=== PATIENT | female | born 1940 | race Caucasian/White ===

== ENCOUNTER → 2018-03-29 11:00 | Outpatient (CLI) | payer MEDICARE, BC, SELFPAY ==
[2018-03-29 12:02] LABS: CREATININE 0.84 mg/dL (0.55-1.02); Potassium 4.9 mmol/L (3.5-5.1)
== END ==
PROVIDERS: PCP General Practice; Visit Provider General Practice
DX: I10 Essential (primary) hypertension (principal)
CPT/HCPCS: 36415; 82565; 84132

== ENCOUNTER 2018-05-07 12:55 | Outpatient (REF) | payer MEDICARE, SELFPAY ==
--- NOTE | 2018-05-07 11:00 | SKI_PTH ---
PATIENT: Gauri Felix LOC: [facility] U#:[id number] AGE/SX: 78/F ROOM: RE05/07/[address]: Paolo Noel : 1940 BED: DIS: 05/07/2018 SPEC #: [id number] RECD: 05/07/18 13:02 STATUS: FRANCIE PEREZ #: [id number] LAILA: 05/07/18 11:[address]: Paolo Noel DEPT: Surgical Specimen RECD BY: Shaylee Armijo Tissues: 1 - SKIN BIOPSY(SHAVE/PUNCH) Procedures: SKIN LEVEL 4 Comments: [id number]
== END 2018-05-07 13:15 ==
LOC: LBN 12:55
PROVIDERS: PCP General Practice; Visit Provider General Practice
DX: L82.1 Other seborrheic keratosis (principal); D23.30 Other benign neoplasm of skin of unspecified part of face
CPT/HCPCS: 88305

== ENCOUNTER 2018-10-29 01:41 | Outpatient (CLI) | payer MEDICARE, BC, SELFPAY ==
--- NOTE | 2018-10-29 12:30 | DI.MAMMO_ITS ---
SYMPTOMS/DIAGNOSIS: SCREENING, Z12.31 MAMMOGRAM: Mammograms were interpreted according to the usual protocol including computer analysis with CAD system, tomosynthesis and C view imaging. Comparison with prior examinations. Breast density B. No suspicious microcalcifications are seen. No suspicious masses are seen in the left breast. There is an ovoid asymmetric density in the medial aspect of the right breast seen on the craniocaudad view. This area should be further evaluated with a spot compression view. Ultrasound may be indicated at that time. IMPRESSION: Additional views of the right breast as described above. Category 0. MQSA ASSESSMENT OF FINDINGS: Incomplete: Needs additional imaging evaluation. Category 0. Patient will receive a letter notifying them of these results. BI-RADS category B. There are scattered areas of fibroglandular density.
== END 2018-10-29 02:01 ==
PROVIDERS: PCP General Practice; Visit Provider Nurse Practitioner Family
DX: Z12.31 Encounter for screening mammogram for malignant neoplasm of breast (principal); R92.8 Other abnormal and inconclusive findings on diagnostic imaging of breast
CPT/HCPCS: 77063; 77067

== ENCOUNTER 2018-11-06 01:26 | Outpatient (CLI) | payer MEDICARE, BC, SELFPAY ==
--- NOTE | 2018-11-06 10:48 | DI.COMBO_ITS ---
SYMPTOMS/DIAGNOSIS: F/U MAMMO, OVOID ASYMMETRIC DENSITY IN MEDIAL ASPECT OF RT BREAST, R92.8 ADDITIONAL VIEWS OF THE RIGHT BREAST AND RIGHT BREAST ULTRASOUND: Additional images are interpreted according to the usual protocol including tomosynthesis and 2D imaging. Additional views of the right breast fail to show a persistent discrete mass. A right breast ultrasound was performed. The upper inner and lower inner quadrants of the right breast were evaluated sonographically. No suspicious cystic or solid masses are seen. IMPRESSION: No definite evidence for malignancy at this time. A 6 month follow up right mammogram is requested for re-evaluation. Breast density B. The findings were discussed with the patient on the date of the examination. MQSA ASSESSMENT OF FINDINGS: Probably benign. Six month follow-up recommended. Category 3. Patient will receive a letter notifying them of these results. BI-RADS category B. There are scattered areas of fibroglandular density.
== END 2018-11-06 01:46 ==
PROVIDERS: PCP General Practice; Visit Provider Nurse Practitioner Family
DX: Z12.31 Encounter for screening mammogram for malignant neoplasm of breast (principal); R92.8 Other abnormal and inconclusive findings on diagnostic imaging of breast; N64.59 Other signs and symptoms in breast
CPT/HCPCS: 76642; 77063; 77067

== ENCOUNTER 2018-12-17 00:38 | Outpatient (CLI) | payer MEDICARE, BC, SELFPAY ==
--- NOTE | 2018-12-17 14:00 | DI.RAD_ITS ---
SYMPTOMS/DIAGNOSIS: SCREENING FOR OSTEOPOROSIS IN A POSTMENOPAUSAL WOMAN, Z78.0; KYPHOSIS DEXA SCAN: Routine examination. Comparison is 2008. The lateral view of the spine shows no compression deformities. Evaluation of the left hip shows a total T score of -1.2 and a Z score of 0.7; this is consistent with osteopenia and an increased fracture risk. This compares with a total T score of -0.2 from 2008. Evaluation of the lumbar spine shows a total T score of -2.2 and a Z score of 0.3; this is also consistent with osteopenia and an increased fracture risk. This compares with a total T score of -1.9 from 2008. IMPRESSION: Osteopenia in the lumbar spine and left hip.
== END 2018-12-17 00:58 ==
PROVIDERS: PCP General Practice; Visit Provider General Practice
DX: M85.88 Other specified disorders of bone density and structure, other site (principal); Z78.0 Asymptomatic menopausal state
CPT/HCPCS: 77080

== ENCOUNTER 2018-12-17 13:58 | Outpatient (CLI) | payer MEDICARE, BC, SELFPAY ==
[2018-12-17 16:47] LABS: Potassium 4.4 mmol/L (3.5-5.1); TSH 2.41 uIU/mL (0.358-3.74)
== END 2018-12-17 14:18 ==
PROVIDERS: PCP General Practice; Visit Provider General Practice
DX: I10 Essential (primary) hypertension (principal); E03.9 Hypothyroidism, unspecified
CPT/HCPCS: 36415; 77080; 82565; 84132; 84443

== ENCOUNTER 2018-12-20 08:34 | Outpatient (REF) | payer MEDICARE, BC, SELFPAY ==
[2018-12-21 11:50] LABS: Campylobacter PCR SEE COMMENTS; Salmonella PCR SEE COMMENTS; Shiga Toxin PCR SEE COMMENTS; Shigella/Enteroinvasive Ecoli SEE COMMENTS
== END 2018-12-20 08:54 ==
LOC: LBN 08:34
PROVIDERS: PCP General Practice; Visit Provider General Practice
DX: D68.9 Coagulation defect, unspecified (principal)
CPT/HCPCS: 87329; 87505; 83630; 87324

== ENCOUNTER 2019-05-13 00:24 | Outpatient (CLI) | payer MEDICARE, BC, SELFPAY ==
--- NOTE | 2019-05-13 13:20 | DI.MAMMO_ITS ---
EXAM: MG MAMMO DIAGNOSTIC UNI CLINICAL HISTORY: 6 mo f/u R mammo, R92.8. TECHNIQUE: Mammograms were interpreted according to the usual protocol including computer analysis w [employer] CAD system, tomosynthesis and C-view imaging. COMPARISON: No exams were available for comparison FINDINGS: Six-month follow-up images of the right breast were obtained. There has been no appreciable interval change. There is no evidence of a mass or suspicious calcification. IMPRESSION: No evidence of malignancy, category 1. BI-RADS category B. BI-RADS Cat 1 - Negative Breast Density - Category B - Scattered areas of fibroglandular density
== END 2019-05-13 00:44 ==
PROVIDERS: PCP General Practice; Visit Provider Nurse Practitioner Family
DX: Z12.31 Encounter for screening mammogram for malignant neoplasm of breast (principal); R92.8 Other abnormal and inconclusive findings on diagnostic imaging of breast; N64.59 Other signs and symptoms in breast
CPT/HCPCS: 77061; 77065; G0279

== ENCOUNTER 2019-06-28 13:13 | Emergency (ER) | payer MEDICARE, BC, SELFPAY ==
[2019-06-28 13:15] VITALS: BP 163/86; PULSE 64; RESP 18; TEMP 34.4; O2SAT 100
[2019-06-28 13:20] VITALS: RESP 18
[2019-06-28] MEDS: Meclizine 25 MG TAB PO (13:56)
--- NOTE | 2019-06-28 13:57 | ED.GENADUL_ITS ---
Discharge Plan Disposition Patient Disposition: HOME Discharge Details Chief Complaint: Dizzy/Sync Clinical Impression: Vertigo Primary Care Provider: Elena Stauffer ED Provider: Imtiaz Nieves Home Meds and New Rx's Prescriptions: New meclizine 25 mg tablet 25 mg PO BID PRN (Reason: dizziness) Qty: 30 RF: 0 Continued losartan 25 mg tablet 25 mg PO DAILY RF: 0 atorvastatin 10 MG tablet 20 mg PO DAILY RF: 0 levothyroxine 25 MCG tablet 50 mcg PO DAILY RF: 0 aspirin [Aspir-81] 81 mg tablet,delayed release (DR/EC) 325 mg PO DAILY RF: 0 meclizine [Antivert] 12.5 MG tablet 12.5 mg PO TID PRN (Reason: Vertigo) Qty: 12 RF: 0 Discharge Instructions Instructions: Vertigo (ED) Additional Instructions: Please follow-up with your primary care physician and neurology. Return to the ER immediately for any worsening or new concerning symptoms. Referrals: Elena Stauffer NP [Primary Care Provider] - Jordyn Hurd MD [ [facility] STAFF PHYSICIAN] - Medical Decision Making 14:00 --79-year-old female with history of vertigo in the past, here with vertigo. Hints testing was negative. Suspect peripheral etiology. Consider central lesion given her age and risk factors including prior CVA. Plan to treat with Antivert. Will CT head and CTA brain and neck. 16:29 --CTA of the head and neck interpreted by radiology: No acute findings. CT head interpreted cardiology: No acute intracranial abnormality. Chronic microvascular ischemic changes. Patient reassessed and feels much better and symptoms resolved after Antivert. Discussed outpatient follow-up with neurology. Disposition decision was made weighing the risks and benefits of hospitalization versus outpatient treatment, the risk for further decompensation, and the patient's wishes. The patient was stable and requested discharge. Prior to discharge, my usual and customary return precautions were reviewed with the patient - this included follow-up instructions and reason to return to the emergency department if condition worsens, does not improve as expected, or other new concerns arise. HPI General Mode of arrival: ambulatory . Date/Time Provider Initiated Documentation: 06/28/19 13:28 . Limitations to Documentation: no limitations . Information obtained by: patient . 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 Patient notes room spinning dizziness that started about 45 minutes prior to arrival. Symptoms are severe. Worse with movement of her head. Improved with lying down now. She had associated nausea and vomiting. Of note, about 1 year ago, she had similar vertiginous presentation to the emergency department. She notes she had negative CT at that time. Since that time she had a few brief episodes of vertigo. Patient denies associated chest pain. No swelling. No numbness or weakness. Related Data Home Medications Medication Instructions Recorded Confirmed atorvastatin 20 mg PO DAILY tab-cap 08/17/14 06/28/19 levothyroxine 50 mcg PO DAILY tab-cap 09/08/16 06/28/19 meclizine [Antivert] 12.5 mg PO TID PRN #12 tab 01/10/18 06/28/19 aspirin 81 mg tablet,delayed 325 mg PO DAILY tab-cap 10/17/18 06/28/19 release losartan 25 mg tablet 25 mg PO DAILY 10/17/18 06/28/19 meclizine 25 mg PO BID PRN #30 tab 06/28/19 Previous Rx's Medication Instructions Recorded meclizine [Antivert] 12.5 mg PO TID PRN #12 tab 01/10/18 meclizine 25 mg PO BID PRN #30 tab 06/28/19 Allergies Allergy/AdvReac Type Severity Reaction Status Date / Time alfalfa Allergy Severe Hives Verified 06/28/19 13:26 Sulfa (Sulfonamide Allergy Severe sick and Verified 06/28/19 13:26 Antibiotics) itchy nitrofurantoin AdvReac Severe nausea,dizzy,and Verified 06/28/19 13:26 [From Macrobid] in bed for 2 days nitrofurantoin AdvReac Severe nausea,dizzy,and Verified 06/28/19 13:26 macrocrystalline in bed for [From Macrobid] 2 days meperidine HCl [From Demerol] AdvReac Intermediate vomiting Verified 06/28/19 13:26 Latex, Natural Rubber AdvReac Mild Itching Unverified 06/28/19 13:26 General Stated Complaint: Dizzy/Sync ELA: 3 Review of Systems All systems reviewed & are unremarkable except as noted in HPI and below Constitutional Constitutional: Denies fever(s) and Denies weakness ENT Ears, Nose, Mouth, and Throat: Reports vertigo Cardiovascular Cardiovascular: Denies chest pain, Denies syncope and Denies dyspnea Respiratory Respiratory: Denies dyspnea Neurologic Neurologic: Reports vertigo, Denies syncope and Denies weakness PFSH Medical History 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 Sister No problems noted. Brother No problems noted. Son Alcohol abuse Past Asthma Hyperlipidemia Hypertension Autism Maternal Grandfather , age 85 No problems noted. Paternal Grandfather , age 87 Prostate cancer Maternal Grandmother , age 85 No problems noted. Paternal Grandmother , age 85 Cancer Social History Smoking/Tobacco Use Status: Never Alcohol Intake: current Alcohol Intake frequency: holidays/special occasions only Alcohol type: wine and hard liquor Drug use: Never Substance use type: does not use Household members: spouse Housing: house Communication Needs: Corrective Lenses Do you need help understanding health information?: Never Pets and animals: Yes Pets and animals: cat(s) Sexually active: No Do you think of yourself as: straight/heterosexual Current gender identity: female What is your relationship status?: How often do you talk on the phone with friends or family?: three or more times per week How often do you get together with friends or relatives?: three or more times per week How often do you attend methodist or jainism services?: decline to answer Do you belong to any clubs or organized social groups?: yes Panel score (0-1 are the most socially isolated patients): 3 What type of physical activity do you participate in: other Details: housework, yard work, gardening, pet care, stairs Frequency: daily Irina/Christianity: none Special irina needs: Yes (If I'm dying keep clergy & harps away) Seatbelt use: always Drive intox or ride w/intox national dedicated truck driver: No Do you feel safe at home: Yes Do you feel safe in your relationship?: Yes Exam Const General: cooperative and no acute distress HENMT Head: normocephalic and atraumatic Mouth: moist mucous membranes Eyes Conjunctivae: normal conjunctivae Sclera: normal sclerae EOM: EOM intact bilaterally Neck Neck: trachea midline and supple Resp Auscultation: clear to auscultation bilaterally, no rales, no rhonchi and no wheezes Cardio Jugular venous pressure: no JVD Rate: regular rate and not tachycardic Rhythm: regular rhythm GI Palpation: soft, not firm, no guarding, no masses, not rigid and nontender Skin General skin exam: no rashes or lesions noted Neuro General: alert, awake, oriented x3, tone normal and no focal motor deficits Cranial Nerves: CN's II-XI intact bilaterally and PERRL Cognition: normal cognition Speech: speech normal Motor: muscle tone normal throughout and strength 5/5 throughout Sensory Exam: no sensory deficits noted Coordination: other ([id number] with some tremor bilaterally) Other: Rapid alternating movement intact, HINTS testing negative Extrem General: no edema Psych Appearance: grossly normal Mental Status: mental status grossly normal Speech and Movement: speech and movement normal Course Vital Signs Vital signs: Vital Signs Temperature 34.4 C L 06/28/19 13:15 Pulse 64 06/28/19 13:15 Respiratory Rate 18 06/28/19 13:15 Blood Pressure 163/86 H 06/28/19 13:15 Pulse Oximetry 100 06/28/19 13:15 Temperature 34.4 C L 06/28/19 13:15 Temperature Source Tympanic 06/28/19 13:15 Pulse 64 06/28/19 13:15 Respiratory Rate 18 06/28/19 13:20 Respiratory Effort Non-Labored 06/28/19 13:20 Respiratory Depth Normal 06/28/19 13:20 Respiratory Pattern Normal 06/28/19 13:20 Blood Pressure 163/86 H 06/28/19 13:15 Blood Pressure Position Supine 06/28/19 13:15 Pulse Oximetry 100 06/28/19 13:15 Oxygen Delivery Method Room Air 06/28/19 13:15 Oxygen Flow Rate 0 06/28/19 13:15
[2019-06-28] MEDS: Normal Saline 1,000 ML 150 ML IV (13:58)
[2019-06-28 14:10] LABS: Abs Immature Grans 0.03 k/cumm (0.0-0.09); Absolute Basophil Count 0.05 k/cumm (0.0-0.2); Absolute Eosinophil Count 0.18 k/cumm (0.0-0.7); Absolute Lymphocyte Count 1.57 k/cumm (1.2-3.4); Absolute Monocyte Count 0.67 k/cumm (0.11-0.7); Absolute Neutrophil Count 6.59 k/cumm (1.2-6.7); Basophils % 0.6; HCT 41.4 % (36.0-46.0); Immature Grans % 0.3; Lymphocytes % 17.3; Mean Corp. HGB Concentration 33.8 g/dL (32.0-36.0); Mean Corpuscular Hemoglobin 30.6 pg (27.0-33.0); Mean Corpuscular Volume 90.4 fL (80-95); Mean Platelet Volume 11.1 fL (8.0-11.0); Monocytes % 7.4; Neutrophils % 72.4; Platelet Count 395 x1000/uL (130-400); RBC 4.58 m/cumm (4.00-5.20); RBC Distribution Width 13.3 % (11.7-14.6); White Blood Cell Count 9.09 k/cumm (4.4-10.8)
[2019-06-28 14:23] LABS: ALT 23 U/L (14-59); AST 19 U/L (15-37); Albumin 3.8 g/dL (3.4-5.0); Alkaline Phosphatase 120 U/L (46-116); Anion Gap 11.3 mmol/L (3-11); BUN 26 mg/dL (7-18); Bilirubin, Total 0.4 mg/dL (0.2-1.0); CO2 25.7 mmol/L (21.0-32.0); CREATININE 0.89 mg/dL (0.55-1.02); Calcium 9.2 mg/dL (8.5-10.1); Chloride 101 mmol/L (98-107); Glucose 122 mg/dL (70-100); Potassium 3.9 mmol/L (3.5-5.1); Sodium 138 mmol/L (136-145); Total Protein 7.5 g/dL (6.4-8.2)
[2019-06-28 14:28] LABS: Troponin I < 0.05 ng/mL (0.00-0.06)
[2019-06-28] MEDS: Omnipaque 350 MG/ML 100 ML BTL IJ (16:01)
[2019-06-28] MEDS: Normal Saline Flush 10 ML SYR IVP (16:02)
--- NOTE | 2019-06-28 16:03 | DI.CT_ITS ---
EXAM: CT BRAIN NECK CTA CLINICAL HISTORY: vertigo, h/o cva in past TECHNIQUE: The initial head CT was performed according to the usual protocol without contrast. Axial CT angiography was performed with multi-slice acquisition and multi-planar and/or 3D reconstruc tions. COMPARISON: CTA BRAIN AND NECK from 01/10/2018 FINDINGS: CT brain: The ventricles and sulci are consistent with the patient's age. There are areas of decreased attenua tion in the white matter, most consistent with small vessel ischemic disease. There is no evidence o f an acute infarct, midline shift or mass effect. The visualized paranasal sinuses are clear. The mastoid air cells are well pneumatized. The calvari um is intact. CT angiography of the head: Internal carotid arteries: Unremarkable. No evidence of aneurysm, occlusion or significant stenosis. Anterior cerebral arteries: Unremarkable. No evidence of aneurysm, occlusion or significant stenosis . Middle cerebral arteries: Unremarkable. No evidence of aneurysm, occlusion or significant stenosis. Posterior cerebral arteries: Unremarkable. No evidence of aneurysm, occlusion or significant stenosi s. Vertebral arteries: Unremarkable. No evidence of occlusion, aneurysm or significant stenosis. Basilar artery: Unremarkable. No evidence of occlusion, aneurysm or significant stenosis. CT angiography of the neck: Common carotid arteries: Unremarkable. No evidence of occlusion or significant stenosis. No evidenc e of dissection. External carotid arteries: Unremarkable. No evidence of occlusion or significant stenosis. Internal carotid arteries. Unremarkable. No evidence of dissection, occlusion or significant stenos is. Vertebral arteries: There is tortuosity of the origin of the left vertebral artery. No evidence of d issection or occlusion or significant stenosis. IMPRESSION: 1. No acute intracranial process. 2. No acute arterial abnormality.
--- NOTE | 2019-06-28 16:20 | DI.VRAD_ITS ---
PROCEDURE INFORMATION: Exam: CT Head Without Contrast Exam date and time: 06/28/2019 3:08 PM Clinical history: 79 years old, female; Vertigo and other: H/o CVA TECHNIQUE: Imaging protocol: Computed tomography of the head without contrast. 3D rendering: MIP reconstructed images were created and reviewed. COMPARISON: CT HEAD WITHOUT CONTRAST 01/10/2018 3:42 PM FINDINGS: Brain: The worthington-white differentiation is maintained. No hemorrhage. No edema. There are moderate periventricular and subcortical lucencies consistent with chronic microvascular ischemic changes. Ventricles: Ventricles and sulci are prominent consistent with age appropriate parenchymal volume loss. Bones/joints: Unremarkable. No acute fracture. Sinuses: Visualized sinuses are unremarkable. No fluid levels. Mastoid air cells: Visualized mastoid air cells are well aerated. Soft tissues: Unremarkable. IMPRESSION: No acute intracranial abnormality. Chronic microvascular ischemic changes. Dictated and Authenticated by: Ryan Juares MD. Ordering:DYLAN Kitchen MD
[2019-06-28 17:46] VITALS: BP 142/69; PULSE 65; O2SAT 85
[2019-06-28 18:10] VITALS: RESP 17; O2SAT 95
--- NOTE | 2019-06-28 19:21 | DI.VRAD_ITS ---
Addendum created by Ryan Juares DO on 06/28/2019 7:21:42 PM EST This is an addendum to prior report on CTA head and neck dated 06/28/2019. CT head: There are moderate periventricular and subcortical lucencies consistent with chronic microvascular ischemic changes. Ventricles and sulci are prominent consistent with age appropriate parenchymal volume loss. The worthington-white differentiation is maintained. No hemorrhage. No edema. Mastoids are unremarkable. Bones are unremarkable. Bilateral cataract surgery. Impression: No acute intracranial abnormality. Chronic microvascular ischemic changes. Initial report created on 06/28/2019 4:20:14 PM EST PROCEDURE INFORMATION: Exam: CT Angiography Head With Contrast Exam date and time: 06/28/2019 3:08 PM Clinical history: 79 years old, female; Vertigo and other: H/o CVA TECHNIQUE: Imaging protocol: Computed tomography angiography of the head with intravenous contrast. 3D rendering: MIP reconstructed images were created and reviewed. Contrast material: OMNIPAQUE 350; Contrast volume: 85 ml; Contrast route: IV 20G RAC; COMPARISON: CTA BRAIN AND NECK 01/10/2018 4:48 PM FINDINGS: Right internal carotid artery: Unremarkable. Intracranial segment is patent with no significant stenosis. No aneurysm. Right anterior cerebral artery: Unremarkable. No occlusion or significant stenosis. No aneurysm. Right middle cerebral artery: Unremarkable. No occlusion or significant stenosis. No aneurysm. Right posterior cerebral artery: Unremarkable. No occlusion or significant stenosis. No aneurysm. Right vertebral artery: Unremarkable. No occlusion or significant stenosis. No aneurysm. Left internal carotid artery: Unremarkable. Intracranial segment is patent with no significant stenosis. No aneurysm. Left anterior cerebral artery: Unremarkable. No occlusion or significant stenosis. No aneurysm. Left middle cerebral artery: Unremarkable. No occlusion or significant stenosis. No aneurysm. Left posterior cerebral artery: Unremarkable. No occlusion or significant stenosis. No aneurysm. Left vertebral artery: Unremarkable. No occlusion or significant stenosis. No aneurysm. Basilar artery: Unremarkable. No occlusion or significant stenosis. No aneurysm. IMPRESSION: No acute findings. PROCEDURE INFORMATION: Exam: CT Angiography Neck With Contrast Exam date and time: 06/28/2019 3:08 PM Clinical history: 79 years old, female; Vertigo and other: H/o CVA TECHNIQUE: Imaging protocol: Computed tomography angiography of the neck with intravenous contrast. 3D rendering: MIP reconstructed images were created and reviewed. Contrast material: OMNIPAQUE 350; Contrast volume: 85 ml; Contrast route: IV 20G RAC; COMPARISON: CTA BRAIN AND NECK 01/10/2018 4:48 PM FINDINGS: VASCULATURE: Right common carotid artery: Unremarkable. No stenosis. No dissection or occlusion. Right internal carotid artery: Unremarkable extracranial segment. No stenosis. No dissection or occlusion. Right external carotid artery: Unremarkable. No occlusion or stenosis of the origin. Right vertebral artery: Unremarkable. No stenosis. No dissection or occlusion. Left common carotid artery: Unremarkable. No stenosis. No dissection or occlusion. Left internal carotid artery: Unremarkable extracranial segment. No stenosis. No dissection or occlusion. Left external carotid artery: Unremarkable. No occlusion or stenosis of the origin. Left vertebral artery: Unremarkable. No stenosis. No dissection or occlusion. NECK: Bones/joints: No acute fracture. Soft tissues: Normal. No significant soft tissue swelling. IMPRESSION: No acute abnormality. COMMENT: Reference per NASCET criteria for degree of stenosis: Mild: less than 50% stenosis. Moderate: 50-69% stenosis. Severe: 70-94% stenosis. Near occlusion: 95-99% stenosis. Dictated and Authenticated by: Ryan Juares MD. Ordering:DYLAN Kitchen MD
== END 2019-06-28 18:11 | disposition home or self-care (01) ==
PROVIDERS: Emergency Provider Student in an Organized Health Care Education/Training Program; PCP Nurse Practitioner
DX: R42 Dizziness and giddiness (principal); I10 Essential (primary) hypertension; Z86.73 Personal history of transient ischemic attack (TIA), and cerebral infarction without residual deficits
CPT/HCPCS: 36415; 70496; 70498; 80053; 96360; 96361; 99284; 83735; 84484; 85025; J3490

== ENCOUNTER 2019-07-11 01:23 | Outpatient (CLI) | payer MEDICARE, BC, SELFPAY ==
--- NOTE | 2019-07-11 13:59 | DI.MRI_ITS ---
EXAM: MR BRAIN WO CLINICAL HISTORY: VERTIGO, R42. TECHNIQUE: Multiplanar multisequence MRI was performed. COMPARISON: No exams were available for comparison FINDINGS: The ventricles and sulci are consistent with the patient's age. There are scattered areas of hyperin tense signal in the white matter on the FLAIR and T2 weighted images most consistent with small vesse l ischemic disease. The diffusion-weighted images are unremarkable. No intracranial hemorrhage is p resent. There is no acute midline shift or mass effect. There is a normal flow void seen in the cir [place] of Goel. The visualized paranasal sinuses are unremarkable. IMPRESSION: Age-appropriate cerebral atrophy and small vessel ischemic disease. No acute intracranial process.
== END 2019-07-11 01:43 ==
PROVIDERS: PCP General Practice; Visit Provider General Practice
DX: R42 Dizziness and giddiness (principal); G31.89 Other specified degenerative diseases of nervous system; I67.82 Cerebral ischemia
CPT/HCPCS: 70551

== ENCOUNTER 2019-07-21 11:49 | Outpatient (CLI) | payer MEDICARE, BC, SELFPAY ==
[2019-07-21 12:43] LABS: CREATININE 0.89 mg/dL (0.55-1.02); Potassium 4.5 mmol/L (3.5-5.1)
== END 2019-07-21 12:09 ==
PROVIDERS: PCP General Practice; Visit Provider General Practice
DX: I10 Essential (primary) hypertension (principal)
CPT/HCPCS: 36415; 82565; 84132

== ENCOUNTER 2019-08-04 14:20 | Outpatient (CLI) | payer MEDICARE, BC, SELFPAY ==
[2019-08-04 15:25] LABS: ESR 23 mm/hr (0-30)
== END 2019-08-04 14:40 ==
PROVIDERS: PCP General Practice; Visit Provider General Practice
DX: M35.3 Polymyalgia rheumatica (principal)
CPT/HCPCS: 36415; 85652

== ENCOUNTER 2019-09-02 03:03 | Outpatient (CLI) | payer MEDICARE, BC, SELFPAY ==
[2019-09-02 10:19] LABS: Calculated LDL 77 mg/dL; Cholesterol 168 mg/dL (<200); HDL Cholesterol 69 mg/dL (40-60); TSH (W/Ref FT4) 0.78 uIU/mL (0.36-3.74); Triglyceride 114 mg/dL (<150)
== END 2019-09-02 03:23 ==
PROVIDERS: PCP Nurse Practitioner; Visit Provider Nurse Practitioner
DX: E03.9 Hypothyroidism, unspecified (principal); E78.5 Hyperlipidemia, unspecified
CPT/HCPCS: 36415; 80061; 84443

== ENCOUNTER 2019-11-10 01:59 | Outpatient (CLI) | payer MEDICARE, BC, SELFPAY ==
--- NOTE | 2019-11-10 12:45 | DI.MAMMO_ITS ---
EXAM: MAMMO SCREENING CLINICAL HISTORY: SCREENING, Z12.39 TECHNIQUE: Mammograms were interpreted according to the usual protocol including computer analysis w ith CAD system, tomosynthesis and C-view imaging. COMPARISON: The current examination is compared with previous examinations including October 2018 FINDINGS: The breasts are of moderate density with fairly symmetrical distribution of fibroglandular tissue. N o dominant mass or clumped microcalcification is identified in either breast. The current examinatio n is compared with previous examinations including October 2018 and there is increased prominence of an area of asymmetric density projected in the superior aspect of left breast on MLO view. Additional mammographic views of the left breast are requested to include left breast MLO spot compression view. IMPRESSION: Additional mammographic views of the left breast requested as described above. Breast ultrasound may be indicated as well depending on the results of additional mammographic views. BI-RADS Cat 0 - Assessment Incomplete: Need additional imaging evaluation Breast density category B
== END 2019-11-10 02:19 ==
PROVIDERS: PCP Nurse Practitioner; Visit Provider Nurse Practitioner
DX: Z12.31 Encounter for screening mammogram for malignant neoplasm of breast (principal); R92.8 Other abnormal and inconclusive findings on diagnostic imaging of breast
CPT/HCPCS: 77063; 77067

== ENCOUNTER 2019-12-22 00:37 | Outpatient (CLI) | payer MEDICARE, BC, SELFPAY ==
--- NOTE | 2019-12-22 | DI.MAMMO_ITS ---
EXAM: MG MAMMO SCREEN CALL BACK UNI CLINICAL HISTORY: F/U ABNL MAMMO, INCREASED PROMINENCE OF ASYMMETRIC DENSITY SUPERIOR LT TECHNIQUE: Bilateral full field digital CC and MLO mammographic images were obtained with 3D tomosyn thesis and utilizing computer aided detection (CAD). COMPARISON: 2009 through 10 November 2019. FINDINGS: A spot compression view with tomography was performed of the superior left breast. No persistent abn ormality is identified. Masses/Architectural Distortion: None seen. Microcalcifications: No suspicious pleomorphic-type are seen. Skin Thickening/Nipple Retraction: None. IMPRESSION: 1. No significant interval change with no specific features of malignancy noted. 2. Bilateral screening mammogram is recommended in 1 year. BI-RADS Cat 1 - Negative Breast Density - Category B - Scattered areas of fibroglandular density A negative radiographic report should not delay biopsy if a dominant or clinically suspicious mass is present. Up to ten percent of cancers are not identified on mammography. A negative report may reinforce clinical impression. Adenosis and dense breasts may obscure an underlying neoplasm. False positive reports average 6 to 10%. Patient will receive a letter notifying them of these results.
== END 2019-12-22 00:57 ==
PROVIDERS: PCP Nurse Practitioner; Visit Provider Nurse Practitioner
DX: Z12.31 Encounter for screening mammogram for malignant neoplasm of breast (principal); R92.8 Other abnormal and inconclusive findings on diagnostic imaging of breast; N64.59 Other signs and symptoms in breast
CPT/HCPCS: 77063; 77067

== ENCOUNTER 2020-07-14 12:27 | Inpatient (IN) | payer MEDICARE, BC, SELFPAY ==
[2020-07-14] VITALS (40 sets, daily range): BP systolic 96–159; BP diastolic 48–94; PULSE 49–122; RESP 8–20; TEMP 35.5–37; O2SAT 95–100
--- NOTE | 2020-07-14 12:28 | W.ED.GENAD ---
Discharge Plan Disposition Patient Disposition: [facility] INPATIENT Condition: Stable Discharge Details Clinical Impression: Acute infarction of small intestine, UTI (urinary tract infection), Leukocytosis Admit Date/Time: 07/14/20 18:02 Admit Provider: Jumana Solano Attending Provider: Jumana Solano Primary Care Provider: Elena Stauffer ED Provider: Celestina Ferreira Medical Decision Making 1250 -- 80-year-old female with a history of hypertension and hypothyroidism who presents with constant sharp abdominal pain and diarrhea for the past 2 days with dark urine noted today. Patient appears comfortable and nontoxic. Her abdomen is soft and tender across lower quadrants. Differential diagnosis includes gastroenteritis, colitis, UTI, pyelonephritis, diverticulitis, cholelithiasis. Will place an IV, bolus IV fluids, urinalysis, CT abdomen pelvis and give a dose of IV Tylenol and reassess. 1400 -- Labs reviewed. White blood cell count 18. Sodium 129. Potassium 3.1. Urinalysis consistent with UTI. Dose of Rocephin IV ordered. CT notes abnormal loop of small bowel in the lower abdomen to upper pelvis, this shows thickened possibly devascularized wall and irregular contour and appears to be associated with an approximately 2 x 3 cm in diameter fluid and gas collection and marked associated mesenteric edema. Findings are worrisome for bowel ischemia and possible perforation, possibly secondary to internal hernia or mesenteric volvulus.. Alternatively neoplastic disease could have a similar appearance. Heart rate initially elevated but now within normal limits. BP mildly hypertensive. She is afebrile and appears nontoxic. She is talking on phone in room. Case discussed with Dr. Solano who reviewed ct images and evaluated pt in ED - plan is for OR for laparotomy. Medical Records Medical records reviewed: Yes I reviewed the patient's medical records. Imaging Data Radiologic Study: Radiologist's impression: CT ABDOMEN PELVIS W INDICATION: upper and lower abd pain, r/o colitis, sbo. COMPARISON: CT CT BRAIN NECK CTA from 06/28/2019 TECHNIQUE: FINDINGS: CT examination of the abdomen and pelvis was performed with a bolus infusion of 90 cc of Omnipaque 350. Images obtained through the lung bases are unremarkable. The liver is unremarkable in appearance except for small incidental left lobe hepatic cysts.. Gallbladder and bile ducts are CT normal. Pancreas appears normal. Spleen is unremarkable in appearance. Adrenals appear normal. The kidneys are unremarkable except for small bilateral cysts with no evidence of hydronephrosis, nephrolithiasis, or renal mass.. Urinary bladder shows some wall thickening which is nonspecific which could represent cystitis. Abdominal aorta is of normal diameter and no major vascular abnormality is seen. No abdominal wall hernia. No abdominal or pelvic adenopathy. RESIDENTIAL RECYCLE DRIVER structures appear intact. Appendix is normal. No evidence of diverticulitis or bowel obstruction. Note is made of an irregular thick-walled loop of small bowel lying posteriorly in abdominal cavity at the level of the sacrum. This has poorly enhancing wall and is irregular in contour, some wall thickening appears to be present. There is an apparent small gas and fluid collection adjacent to this loop of bowel and there is marked associated mesenteric edema. Findings as described may represent mesenteric volvulus or internal hernia with resultant bowel ischemia, alternatively the possibility of neoplastic disease of the bowel is not excluded. No other focal small bowel mucosal abnormality identified. No evidence of obstruction. IMPRESSION: Abnormal loop of small bowel in the lower abdomen to upper pelvis, this shows thickened possibly devascularized wall and irregular contour and appears to be associated with an approximately 2 x 3 cm in diameter fluid and gas collection and marked associated mesenteric edema. Findings are worrisome for bowel ischemia and possible perforation, possibly secondary to internal hernia or mesenteric volvulus.. Alternatively neoplastic disease could have a similar appearance. Lab Data Lab results reviewed: Yes I reviewed the patient's lab results. Labs: 07/14/20 17:17 Peritoneal Surgical Culture - Pending 07/14/20 17:17 Peritoneal Gram Stain - Final 07/14/20 17:17 Peritoneal Anaerobic Culture - Pending 07/14/20 12:40 Urine - Reflex from Ua Urine Culture - Pending Laboratory Tests Range/Units 07/14/20 07/14/20 07/14/20 12:40 12:55 12:55 WBC (4.4-10.8) 10^3/uL 18.36 H RBC (3.93-5.22) 10^6/uL 4.57 Hgb (11.2-15.7) g/dL 14.1 Hct (36.0-46.0) % 41.6 MCV (80-95) fL 91.0 MCH (27.0-33.0) pg 30.9 MCHC (32.0-36.0) % 33.9 RDW (11.7-14.6) % 15.0 H Plt Count (130-400) 10^3/uL 351 MPV (8.0-11.0) fL 10.8 Immature Gran % 0.4 Neutrophils % 91.6 Lymphocytes % 2.7 Monocytes % 5.2 Eosinophils % 0.0 Basophils % 0.1 Nucleated RBC % % 0 Absolute Neutrophils (1.2-6.7) 10^3/uL 16.82 H Absolute Lymphocytes (1.2-3.4) 10^3/uL 0.50 L Absolute Monocytes (0.1-0.8) 10^3/uL 0.95 H Absolute Eosinophils (0.0-0.7) 10^3/uL 0.00 Absolute Basophils (0.0-0.2) 10^3/uL 0.02 VBG Lactate Sodium (136-145) mmol/L 129 L Potassium (3.5-5.1) mmol/L 3.1 L Chloride (98-107) mmol/L 93 L Carbon Dioxide (21.0-32.0) mmol/L 26.4 Anion Gap (3-11) mmol/L 9.6 BUN (7-18) mg/dL 18 Creatinine (0.55-1.02) mg/dL 1.03 H Estimated GFR/1.73 m2 (mL/min/1.73m2) 51.82 Glucose (74-106) mg/dL 132 H Calcium (8.5-10.1) mg/dL 8.8 Total Bilirubin (0.2-1.0) mg/dL 1.0 AST (15-37) U/L 20 ALT (14-59) U/L 19 Alkaline Phosphatase (46-116) U/L 76 Total Protein (6.4-8.2) g/dL 7.0 Albumin (3.4-5.0) g/dL 3.3 L Urine Color (Yellow) Yellow Urine Clarity (Clear) Sl cloudy Urine pH (5-8) 6.0 Ur Specific Byron (1.005-1.025) 1.020 Urine Protein (Negative) mg/dL 30 H Urine Ketones (Negative) mg/dL 15 H Urine Blood (Negative) Moderate H Urine Nitrite (Negative) Positive H Urine Bilirubin (Negative) Negative Urine Urobilinogen (Up TO 0.2) EU/dL 0.2 Ur Leukocyte Esterase (Negative) Small H Urine RBC Not Applicable Urine WBC (0-5) HPF >50 H Ur Epithelial Cells Not Applicable Urine Crystals Not Applicable Urine Bacteria (Negative) HPF Many Urine Mucus Not Applicable Ur Culture Indicated? Yes Urine Glucose (Negative) mg/dL Negative Range/Units 07/14/20 14:40 WBC (4.4-10.8) 10^3/uL RBC (3.93-5.22) 10^6/uL Hgb (11.2-15.7) g/dL Hct (36.0-46.0) % MCV (80-95) fL MCH (27.0-33.0) pg MCHC (32.0-36.0) % RDW (11.7-14.6) % Plt Count (130-400) 10^3/uL MPV (8.0-11.0) fL Immature Gran % Neutrophils % Lymphocytes % Monocytes % Eosinophils % Basophils % Nucleated RBC % % Absolute Neutrophils (1.2-6.7) 10^3/uL Absolute Lymphocytes (1.2-3.4) 10^3/uL Absolute Monocytes (0.1-0.8) 10^3/uL Absolute Eosinophils (0.0-0.7) 10^3/uL Absolute Basophils (0.0-0.2) 10^3/uL VBG Lactate Cancelled Sodium (136-145) mmol/L Potassium (3.5-5.1) mmol/L Chloride (98-107) mmol/L Carbon Dioxide (21.0-32.0) mmol/L Anion Gap (3-11) mmol/L BUN (7-18) mg/dL Creatinine (0.55-1.02) mg/dL Estimated GFR/1.73 m2 (mL/min/1.73m2) Glucose (74-106) mg/dL Calcium (8.5-10.1) mg/dL Total Bilirubin (0.2-1.0) mg/dL AST (15-37) U/L ALT (14-59) U/L Alkaline Phosphatase (46-116) U/L Total Protein (6.4-8.2) g/dL Albumin (3.4-5.0) g/dL Urine Color (Yellow) Urine Clarity (Clear) Urine pH (5-8) Ur Specific Byron (1.005-1.025) Urine Protein (Negative) mg/dL Urine Ketones (Negative) mg/dL Urine Blood (Negative) Urine Nitrite (Negative) Urine Bilirubin (Negative) Urine Urobilinogen (Up TO 0.2) EU/dL Ur Leukocyte Esterase (Negative) Urine RBC Urine WBC (0-5) HPF Ur Epithelial Cells Urine Crystals Urine Bacteria (Negative) HPF Urine Mucus Ur Culture Indicated? Urine Glucose (Negative) mg/dL HPI General Mode of arrival: ambulatory. Date/Time Provider Initiated Documentation: 07/14/20 12:28. Limitations to Documentation: no limitations. Information obtained by: patient. HPI Narrative: Patient is a 72-year-old female with a history of hypothyroidism who presents with upper and lower abdominal pain, diarrhea for the past 2 days and dark and cloudy urine noted today. Patient called her PCP office and they advised her to come here to rule out kidney infection. She states her abdominal pain has been constant and sharp and worse with movement. She states she treated herself with Azo a couple weeks ago for suspected bladder infection but she states this resolved. She states her pain is 0 at rest but to with movement. She has not taken any medication for pain today. She denies any fever, chest pain, shortness of breath, cough, nausea, vomiting, urinary symptoms, recent travel, recent sick contacts or recent exposure coronavirus. She states her diarrhea has been soft, watery and brown but denies any bleeding. Related Data Home Medications Medication Instructions Recorded Confirmed meclizine 25 mg PO BID PRN #30 tab 06/28/19 07/14/20 magnesium carbonate 250 mg capsule 250 mg PO DAILY cap 08/26/19 07/14/20 aspirin 325 mg tablet 325 mg PO DAILY 09/12/19 07/14/20 levothyroxine 50 mcg capsule 50 mcg PO DAILY #90 cap 10/23/19 07/14/20 prednisone 10 mg tablet 20 mg PO DAILY #180 tab 12/08/19 07/14/20 vit C 250 mg-E 200 unit-zinc 40 1 tab PO DAILY cap 03/03/20 07/14/20 mg-copper 1 [id number] capsule losartan 100 mg tablet 100 mg PO DAILY #90 tab 03/23/20 07/14/20 atorvastatin 20 mg tablet 20 mg PO DAILY #90 tab 05/18/20 07/14/20 Previous Rx's Medication Instructions Recorded meclizine 25 mg PO BID PRN #30 tab 06/28/19 levothyroxine 50 mcg capsule 50 mcg PO DAILY #90 cap 10/23/19 prednisone 10 mg tablet 20 mg PO DAILY #180 tab 12/08/19 losartan 100 mg tablet 100 mg PO DAILY #90 tab 03/23/20 atorvastatin 20 mg tablet 20 mg PO DAILY #90 tab 05/18/20 Allergies Allergy/AdvReac Type Severity Reaction Status Date / Time alfalfa Allergy Severe Hives Verified 07/14/20 12:41 Sulfa (Sulfonamide Allergy Severe sick and Verified 07/14/20 12:41 Antibiotics) itchy diphtheria toxoid,adsorbed Allergy Intermediate fever, Verified 07/14/20 12:41 pain, swelling nitrofurantoin AdvReac Severe nausea,dizzy,and Verified 07/14/20 12:41 [From Macrobid] in bed for 2 days nitrofurantoin AdvReac Severe nausea,dizzy,and Verified 07/14/20 12:41 macrocrystalline in bed for [From Macrobid] 2 days meperidine HCl [From Demerol] AdvReac Intermediate vomiting Verified 07/14/20 12:41 Latex, Natural Rubber AdvReac Mild Itching Verified 07/14/20 12:41 Environmental allergies Allergy Intermediate Itchy, Uncoded 07/14/20 12:41 watery eyes. General ELA: 3 Review of Systems All systems reviewed & are unremarkable except as noted in HPI and below Constitutional Constitutional: Reports as per HPI, Denies chills and Denies fever(s) Eyes Eyes: Denies blurry vision ENT Ears, Nose, Mouth, and Throat: Denies dizziness, Denies sore throat and Denies throat swelling Cardiovascular Cardiovascular: Denies chest pain and Denies dyspnea Respiratory Respiratory: Denies cough and Denies dyspnea Gastrointestinal Gastrointestinal: Reports abdominal pain, Reports diarrhea and Denies vomiting Genitourinary Genitourinary: Denies hematuria and Denies dysuria Musculoskeletal Musculoskeletal: Denies back pain and Denies numbness Integumentary/Breasts Skin/Breast: Denies lesions and Denies rash Neurologic Neurologic: Denies dizziness, Denies localized weakness and Denies numbness Allergic/Immunologic Allergic/Immunologic: Denies throat swelling [facility] Medical History (Updated 07/14/20 @ 21:37 by Celestina Ferreira DO) 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 Paternal Grandfather , age 87 Prostate cancer Maternal Grandmother , age 85 No problems noted. Paternal Grandmother , age 76 Breast cancer Social History Smoking/Tobacco Use Status: Never Second Hand Exposure: Yes Smoking risk assessment performed?: Yes Alcohol Intake: current Alcohol Intake frequency: a few times a month Alcohol type: wine and hard liquor Drug use: Never Substance use type: does not use Household members: spouse and other Details: autistic son lives in apartment attached to house Housing: house Communication Needs: Corrective Lenses Do you need help understanding health information?: Rarely Pets and animals: Yes Pets and animals: cat(s) Sexually active: No Do you think of yourself as: straight/heterosexual Current gender identity: female What is your relationship status?: How often do you talk on the phone with friends or family?: three or more times per week How often do you get together with friends or relatives?: three or more times per week How often do you attend taoist or tenriism services?: decline to answer Do you belong to any clubs or organized social groups?: yes Panel score (0-1 are the most socially isolated patients): 3 What type of physical activity do you participate in: other Details: housework, yard work, gardening, pet care, stairs Frequency: daily Irina/Samaritan: none Special irina needs: Yes (If I'm dying keep clergy & harps away) Seatbelt use: always Drive intox or ride w/intox farm truck driver: No Do you feel safe at home: Yes Do you feel safe in your relationship?: Yes Exam Const General: cooperative, healthy appearing and no acute distress HENMT Head: normal to inspection Face and sinus: normal facial exam Eyes General: appearance normal, both eyes and all related structures EOM: EOM intact bilaterally Neck Neck: normal visual inspection and No submandibular swelling Lymphatic: no lymphadenopathy noted Chest Chest: normal inspection of the chest and no tenderness Resp Effort & Inspection: normal respiratory effort and able to speak in complete sentences Auscultation: clear to auscultation bilaterally Cardio Rate: regular rate Rhythm: regular rhythm GI Inspection: normal to inspection Palpation: soft, not firm, not rigid and tender in the LLQ, in the RLQ and suprapubicly Auscultation: hypoactive bowel sounds Skin General skin exam: no rashes or lesions noted Neuro General: patient alert, patient awake and patient oriented x3 Cognition: normal cognition Speech: speech normal Motor: muscle tone normal throughout Sensory Exam: no sensory deficits noted Extrem General: normal to inspection, full ROM, capillary refill normal, no calf tenderness bilaterally and no edema Psych Appearance: grossly normal Mental Status: mental status grossly normal Speech and Movement: speech and movement normal Affect: normal affect
--- NOTE | 2020-07-14 13:00 | DI.CT_ITS ---
EXAM: CT ABDOMEN PELVIS W INDICATION: upper and lower abd pain, r/o colitis, sbo. COMPARISON: CT CT BRAIN NECK CTA from 06/28/2019 TECHNIQUE: FINDINGS: CT examination of the abdomen and pelvis was performed with a bolus infusion of 90 cc of Omnipaque 35 0. Images obtained through the lung bases are unremarkable. The liver is unremarkable in appearance except for small incidental left lobe hepatic cysts.. Gallbladder and bile ducts are CT normal. Pancreas appears normal. Spleen is unremarkable in appearance. Adrenals appear normal. The kidneys are unremarkable except for small bilateral cysts with no evidence of hydronephrosis, nep hrolithiasis, or renal mass.. Urinary bladder shows some wall thickening which is nonspecific which could represent cystitis. Abdominal aorta is of normal diameter and no major vascular abnormality is seen. No abdominal wall hernia. No abdominal or pelvic adenopathy. TEACHER LEARNING DISABLED structures appear intact. Appendix is normal. No evidence of diverticulitis or bowel obstruction. Note is made of an irregular thick-walled loop of small bowel lying posteriorly in abdominal cavity a t the level of the sacrum. This has poorly enhancing wall and is irregular in contour, some wall thi ckening appears to be present. There is an apparent small gas and fluid collection adjacent to this loop of bowel and there is marked associated mesenteric edema. Findings as described may represent m esenteric volvulus or internal hernia with resultant bowel ischemia, alternatively the possibility of neoplastic disease of the bowel is not excluded. No other focal small bowel mucosal abnormality identified. No evidence of obstruction. IMPRESSION: Abnormal loop of small bowel in the lower abdomen to upper pelvis, this shows thickened possibly velvet scularized wall and irregular contour and appears to be associated with an approximately 2 x 3 cm in diameter fluid and gas collection and marked associated mesenteric edema. Findings are worrisome for bowel ischemia and possible perforation, possibly secondary to internal hernia or mesenteric volvulu s.. Alternatively neoplastic disease could have a similar appearance. RADIATION DOSE DELIVERED: 950.96mGy.cm Total DLP 950.96mGy.cm Total DLP
[2020-07-14 13:02] LABS: HCT 41.6 % (36.0-46.0); HGB 14.1 g/dL (11.2-15.7); MCH 30.9 pg (27.0-33.0); MCHC 33.9 % (32.0-36.0); RBC 4.57 10^6/uL (3.93-5.22); RDW-SD 50.5 fL; WBC 18.36 10^3/uL (4.4-10.8)
[2020-07-14 13:03] LABS: Bilirubin Negative (Negative); Blood Moderate (Negative); Clarity Sl Cloudy (Clear); Glucose Negative (Negative); Ketones 15 mg/dL (Negative); Leukocyte Esterase Small (Negative); Nitrite Positive (Negative); Urobilinogen 0.2 EU/dL (Up TO 0.2)
[2020-07-14 13:03] LABS: Abs Immature Grans 0.08 10^3/uL (0.0-0.06); Absolute Basophil Count 0.02 10^3/uL (0.0-0.2); Absolute Monocyte Count 0.95 10^3/uL (0.1-0.8); Basophils % 0.1; Immature Grans % 0.4; Lymphocytes % 2.7; MPV 10.8 fL (8.0-11.0); Monocytes % 5.2; Neutrophils % 91.6; Nucleated RBC 0 %; Platelet Count 351 10^3/uL (130-400)
[2020-07-14 13:06] LABS: Absolute Neutrophil Count 16.82 10^3/uL (1.2-6.7)
[2020-07-14 13:13] LABS: Bacteria Many HPF (Negative); C & S Indicated? Yes; WBC >50 HPF (0-5)
[2020-07-14 13:29] LABS: ALT 19 U/L (14-59); AST 20 U/L (15-37); Albumin 3.3 g/dL (3.4-5.0); Alkaline Phosphatase 76 U/L (46-116); Anion Gap 9.6 mmol/L (3-11); BUN 18 mg/dL (7-18); CO2 26.4 mmol/L (21.0-32.0); CREATININE 1.03 mg/dL (0.55-1.02); Calcium 8.8 mg/dL (8.5-10.1); Chloride 93 mmol/L (98-107); Estimated GFR 51.82 (mL/min/1.73m2); Glucose 132 mg/dL (74-106); Potassium 3.1 mmol/L (3.5-5.1); Sodium 129 mmol/L (136-145)
[2020-07-14] MEDS: Normal Saline 500 ML IV (13:39)
[2020-07-14] MEDS: Omnipaque 350 MG/ML 100 ML BTL IJ (13:41)
[2020-07-14] MEDS: ACETAMINOPHEN 1,000 MG/100 ML BTL 400 MG IVPB ×2 (13:41→22:21)
[2020-07-14] MEDS: Normal Saline Flush 10 ML SYR IVP ×2 (13:42→20:04)
[2020-07-14] MEDS: Normal Saline - Diluent 50 ML VIAL IV (13:42)
[2020-07-14] MEDS: cefTRIAXone 1 GM/50 ML BAG IVPB (14:23)
[2020-07-14] MEDS: Potassium Chloride 20 MEQ TABCR 40 MEQ PO (14:23)
--- NOTE | 2020-07-14 15:15 | HPE_ITS ---
Date of service: 07/14/20 Time of Service: 15:15 Assessment and Plan Assessment and plan (1) Acute infarction of small intestine: Status: Acute Assessment and plan: I did review the CT scan with Dr. Zambrano. She does appear to be have a small lesion of small bowel but it is infarcted probably has perforated this has walled off. She is hypertensive and tachycardic. She is not in any i blood thinners.. She does have a 18,000 white count. She has had 2 previous laparotomies,. She is all about she and an appendectomy. She has had no problems with anesthesia. She is on a full dose daily. She is on prednisone chronically for over a year. We discussed what she could expect during the procedure post procedure recovery time including but not limited to: Bleeding, infection, pneumonia, blood clots, she is at high risk for previous wound infections because of the steroids. Also: Damage to bowel, bladder, blood vessels, ureters. She should not require a colostomy. Complications of anesthesia including WI and CVA, and others. Most likely this is a small bowel resection. She will be in the hospital for 72 hours and be able to move her bowels she can go home. We will plan on doing an epidural for pain control. We will keep her in the ICU overnight for observation. Document was created using voice recognition software and may contain errors. History of Present Illness Consults Consult date: 07/14/20 Requesting physician: Celestina Ferreira Narrative: Patient is a 79-year-old female who does not like in a state of good health. She feels a pellet stove in. 4 arm we cannot provide that daily. She has no chest pain or shortness of breath. Sunday she started to feel poorly she had nausea fever and chills but no appetite or abdominal pain more on the right side. This is persisted throughout Sunday and she did have a bowel movement today but it was liquid and brown. There is no blood. She has had nausea and just no appetite generally feeling poorly and fatigued. She has rebound guarding in the right lower quadrant she has a bowel sounds. She had a open appendectomy at age 18. She had ovarian cancer 10 to 12 years ago and had 2 surgeries for this. She has not had chemo or radiation. I did review her CT with Dr. [place]. She does appear to have of infarcted/perforated small bowel with localized free air within the mesentery. No prior History of small bowel obstructions in the past. For no problems with anesthesia in the past. 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 She is not on any other blood thinners. She has a history of urinary tract infection. She is on prednisone on 10 mg a day for PMR. She has been on this for over a year. 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 Paternal Grandfather , age 87 Prostate cancer Maternal Grandmother , age 85 No problems noted. Paternal Grandmother , age 76 Breast cancer Social History Smoking/Tobacco Use Status: Never Second Hand Exposure: Yes Smoking risk assessment performed?: Yes Alcohol Intake: current Alcohol Intake frequency: a few times a month Alcohol type: wine and hard liquor Drug use: Never Substance use type: does not use Household members: spouse and other Details: autistic son lives in apartment attached to house Housing: house Communication Needs: Corrective Lenses Do you need help understanding health information?: Rarely Pets and animals: Yes Pets and animals: cat(s) Sexually active: No Do you think of yourself as: straight/heterosexual Current gender identity: female What is your relationship status?: How often do you talk on the phone with friends or family?: three or more times per week How often do you get together with friends or relatives?: three or more times per week How often do you attend episcopalian or confucianist services?: decline to answer Do you belong to any clubs or organized social groups?: yes Panel score (0-1 are the most socially isolated patients): 3 What type of physical activity do you participate in: other Details: housework, yard work, gardening, pet care, stairs Frequency: daily Irina/Restorationist: none Special irina needs: Yes (If I'm dying keep clergy & harps away) Seatbelt use: always Drive intox or ride w/intox pile driver operator: No Do you feel safe at home: Yes Do you feel safe in your relationship?: Yes Meds Home Medications and Allergies Home Medications Medication Instructions Recorded Confirmed Type meclizine 25 mg PO BID PRN #30 tab 06/28/19 07/14/20 Rx magnesium carbonate 250 mg capsule 250 mg PO DAILY cap 08/26/19 07/14/20 History aspirin 325 mg tablet 325 mg PO DAILY 09/12/19 07/14/20 History levothyroxine 50 mcg capsule 50 mcg PO DAILY #90 cap 10/23/19 07/14/20 Rx prednisone 10 mg tablet 20 mg PO DAILY #180 tab 12/08/19 07/14/20 Rx vit C 250 mg-E 200 unit-zinc 40 1 tab PO DAILY cap 03/03/20 07/14/20 History mg-copper 1 [id number] capsule losartan 100 mg tablet 100 mg PO DAILY #90 tab 03/23/20 07/14/20 Rx atorvastatin 20 mg tablet 20 mg PO DAILY #90 tab 05/18/20 07/14/20 Rx Allergies Allergy/AdvReac Type Severity Reaction Status Date / Time alfalfa Allergy Severe Hives Verified 07/14/20 12:41 Sulfa (Sulfonamide Allergy Severe sick and Verified 07/14/20 12:41 Antibiotics) itchy diphtheria toxoid,adsorbed Allergy Intermediate fever, Verified 07/14/20 12:41 pain, swelling nitrofurantoin AdvReac Severe nausea,dizzy,and Verified 07/14/20 12:41 [From Macrobid] in bed for 2 days nitrofurantoin AdvReac Severe nausea,dizzy,and Verified 07/14/20 12:41 macrocrystalline in bed for [From Macrobid] 2 days meperidine HCl [From Demerol] AdvReac Intermediate vomiting Verified 07/14/20 12:41 Latex, Natural Rubber AdvReac Mild Itching Verified 07/14/20 12:41 Environmental allergies Allergy Intermediate Itchy, Uncoded 07/14/20 12:41 watery eyes. Exam Const General: cooperative, healthy appearing, comfortable, no acute distress, well developed and well groomed Nutritional Appearance: average body habitus and well nourished Orientation: alert, awake and oriented x3 HENMT Head: normal to inspection, normocephalic and atraumatic Ears: hearing grossly normal bilaterally and external ears normal General nose exam: external nose normal Face and sinus: normal facial exam and sinuses nontender Mouth: oral mucosae normal, lip normal, tongue normal and moist mucous membranes Teeth and gingiva: dentition normal Eyes General: appearance normal, both eyes and all related structures Conjunctivae: conjunctivae normal Sclera: sclerae normal Pupils: PERRL Neck Neck: normal visual inspection and full ROM Chest Chest: normal inspection of the chest Resp Effort & Inspection: normal respiratory effort, able to speak in complete sentences, no cough, no nasal flaring, not tachypneic and no use of accessory muscles Auscultation: clear to auscultation bilaterally, no rales, no rhonchi and no wheezes Cardio Jugular venous pressure: no JVD Rate: regular rate Rhythm: regular rhythm GI Inspection: normal to inspection, no edema and non-distended Palpation: soft, no masses, tender (rebound and garuding along the scar from her appendix ) in the RLQ, with rebound tenderness and Rovsing's sign positive and No ascites Auscultation: normal bowel sounds Back/Spine/Pelvis Other: changes consistent w/ OA. Skin General skin exam: no rashes or lesions noted Trauma: no lacerations or abrasions Neuro General: patient alert, patient oriented x3, oriented, gait normal, moves all extremities, no focal motor deficits and CN's II-XI intact bilaterally Cognition: normal cognition Speech: speech normal Gait: normal gait Motor: muscle tone normal throughout Extrem General: normal to inspection, full ROM and no clubbing, cyanosis or edema Psych Appearance: grossly normal and well kempt Mental Status: mental status grossly normal Speech and Movement: speech and movement normal Affect: normal affect Results Labs Result diagrams: 07/14/20 12:55 07/14/20 12:55 Labs: Laboratory Results - last 24 hr 07/14/20 07/14/20 07/14/20 12:40 12:55 12:55 WBC 18.36 H RBC 4.57 Hgb 14.1 Hct 41.6 MCV 91.0 MCH 30.9 MCHC 33.9 RDW 15.0 H Plt Count 351 MPV 10.8 Immature Gran % 0.4 Neutrophils % 91.6 Lymphocytes % 2.7 Monocytes % 5.2 Eosinophils % 0.0 Basophils % 0.1 Nucleated RBC % 0 Absolute Neutrophils 16.82 H Absolute Lymphocytes 0.50 L Absolute Monocytes 0.95 H Absolute Eosinophils 0.00 Absolute Basophils 0.02 Sodium 129 L Potassium 3.1 L Chloride 93 L Carbon Dioxide 26.4 Anion Gap 9.6 BUN 18 Creatinine 1.03 H Estimated GFR/1.73 m2 51.82 Glucose 132 H Calcium 8.8 Total Bilirubin 1.0 AST 20 ALT 19 Alkaline Phosphatase 76 Total Protein 7.0 Albumin 3.3 L Urine Color Yellow Urine Clarity Sl cloudy Urine pH 6.0 Ur Specific [place] 1.020 Urine Protein 30 H Urine Ketones 15 H Urine Blood Moderate H Urine Nitrite Positive H Urine Bilirubin Negative Urine Urobilinogen 0.2 Ur Leukocyte Esterase Small H Urine RBC Not Applicable Urine WBC >50 H Ur Epithelial Cells Not Applicable Urine Crystals Not Applicable Urine Bacteria Many Urine Mucus Not Applicable Ur Culture Indicated? Yes Urine Glucose Negative Last Vital Signs Temp 37.0 C 07/14/20 15:05 Pulse 86 07/14/20 15:05 Resp 17 07/14/20 15:05 BP 159/76 H 07/14/20 15:05 Pulse Ox 100 07/14/20 15:05 COVID-19 Screening Have you, or household traveled for leisure in last 14 days?: No Had IN PERSON contact w/suspected or confirmed C-19 person: No
[2020-07-14] MEDS: metroNIDAZOLE 500 MG/100 ML BAG 100 MG IVPB (16:12)
[2020-07-14] MEDS: Normal Saline 500 ML 30 ML IV (16:12)
[2020-07-14] MEDS: Succinylcholine 100 MG/5 ML SYR (16:20)
[2020-07-14] MEDS: FentaNYL/ROPIvacaine 2 mcg/ml and 0.1% 200 ML CADD Cassette EP (16:40)
--- NOTE | 2020-07-14 17:09 | BOWEL_PTH ---
PATIENT: Gauri Felix LOC: [facility]#:[id number] AGE/SX: 80/F ROOM: RE07/14/[address]: Jumana Solano : 1940 BED: B DIS: 07/17/2020 SPEC #: [id number] RECD: 07/19/20 12:27 STATUS: FRANCIE REQ #: [id number] LAILA: 07/14/20 17:[address]: Jumana Solano DEPT: Surgical Specimen RECD BY: Shaylee Armijo ENTERED: 07/19/20 12:32 SP TYPE: Bowel OTHR DR: Elena Stauffer, PhD [employer] InPatient Ravi Ramirez Tissues: 1 - BOWEL RESECTION(OTHER) Procedures: GROSS AND MICRO LEVEL 5 Comments: [id number]
[2020-07-14] MEDS: Ondansetron 4 MG/2 ML VIAL 8 MG (17:30)
--- NOTE | 2020-07-14 18:19 | W.PM.OP ---
Date of service: 07/14/20 Time of Service: 18:19 Operative Note Operative Note DATE OF PROCEDURE: 07/14/20 PRE-OP DIAGNOSIS: peritonitis/perforated jejunum on CT POST-OP DIAGNOSIS: other (perforated Meckels' w/ intramesenteric abscess) PROCEDURE: Ex lap and small bowel resection w/ primary anastomosis SURGEON: Jumana Solano PERIPHERAL VASCULAR TECH: Gabby Wasserman ANESTHESIA: GETA and epidural ESTIMATED BLOOD LOSS: 50 PATHOLOGY: other COMPLICATIONS: None Patient was transported to: PACU Patient's condition: stable Procedure Description: Gauri Felix date of 1940. SHe came to the ER exhibiting signs of abdominal pain and nausea /vomiting and elevated white count. Her CT shows localized jejunal perforation from unknown etiology is exhibiting signs of peritonitis. She is being brought to the operative theater for exploration and possible small bowel resection. Informed consent is obtained explaining risks and benefits of the procedure including but not limited to: Bleeding, infection, pneumonia, blood clots, complications from anesthesia including but not limited to: [place], CVA, and those elaborated on by SUPERVISING BROKER. Other complications include but not limited to: Hernias, wound infections, bowel adhesions, anastomotic dehiscence, damage to bowel, blood vessels, ureters, and other unforetold complications. Patient is brought to the operative suite and placed in supine position. Anesthesia was administered per the department of anesthesia. She has good IV access. She did receive a preoperative epidural for pain control. All Covid precautions are taken. NG tube and Gomez catheter placed. She did receive preop antibiotics. She did receive a stress dose of steroids IV preop. SCDs are in place. Patient is prepped and draped in usual sterile fashion using a ChloraPrep scrub solution. Timeout is performed. Vertical midline incision is made using #10 blade. Electrocautery is used to provide hemostasis and dissect down to the peritoneum, in a standard fashion. Hemostat is used to elevate the peritoneum and the peritoneum is entered. There is scant amount of fluid in the pelvis. There is no gross bleeding or purulent drainage. The abdomen is explored. Gallbladder is intact; liver is normal to palpation. stomach appears normal, colon Shows some mild diverticula. She has had a previous appendectomy. She is also had previous radical JOSE/BSO for ovarian cancer. Interestingly she has no significant adhesions up to the anterior abdominal wall. She has no adhesions down into the pelvis. The small bowel is then run. In the mid jejunum there is a 4 inch segment that is dilated erythematous and inflamed. This Has sealed back upon itself, creating a intra-mesentery Abscess. Again this is walled off and localized, and not contaminating the whole abdomen. This is opened up adn the jejunum is interrogated. It has perforated, the mesentery side, but again does not contaminate the whole abdomen. There is a band that appears to go down to the mesenteric root, by Treitz. It does not appear to be vascular. It is unclear if this is an adhesion from previous surgeries, if this is a congenital [place]'s band, or if this is a Meckel's diverticulum. It is divided between 2 hemostats and tied off. Again this is not appear to be a vascular structure. But appears to be more than just a simple adhesion. Small bowel resection is then carried out. A rent is made in the mesentery, bowel is divided distally and proximally with the CESAR stapler x2, And the mesentery is divided using the LigaSure apparatus. Standard [id number] anastomosis is created using a CESAR stapler and the residual defect is oversewn with a TA 60. The staple lines are reinforced with 4-0 Prolene. The mesenteric defect is closed with 3-0 running Vicryl. Specimen is passed off the field the abdomen is copiously irrigated with 2 L of saline. The anastomosis was pink and viable and healthy in appearance. There is a good lumen. Again there is no gross contamination in the abdomen. Because there was an abscess, 15 [place] Dennis drain is placed in the left lower quadrant and brought out through separate stab incision. surprisingly she has essentially no adhesions from her previous surgeries. All structures were then returned to their normal anatomic position. There is no bleeding or enteric leakage from the anastomosis. 2 pieces of Interceed are placed under the incision. The peritoneum was closed with 0 Vicryl in a running fashion. The fascia was closed with #1PDS In a running fashion. Fat pad is copiously irrigated. The abdomen is closed with hemant. The drain is sewn in place with 2-0 nylon. PICOS dressing is placed. Patient tolerated procedure well without comp application transferred to recovery room in stable condition. She will be kept in ICU overnight for observation. The specimen was opened on the back table. And there does appear to be a diverticular opening. 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 This document was created using voice activated software and may contain errors
[2020-07-14] MEDS: FAMOTIDINE 20 MG/50 ML BAG 200 MG IVPB (19:57)
[2020-07-14] MEDS: Lactated Ringers 1,000 ML 125 ML IV (20:04)
[2020-07-14] MEDS: PIPERACILLIN/TAZO 3.375 GM in Normal Saline 50 ML IVPB (23:58)
[2020-07-15] VITALS (43 sets, daily range): BP systolic 85–152; BP diastolic 40–81; PULSE 56–81; RESP 13–19; TEMP 36–36.7; O2SAT 92–99
[2020-07-15 02:30] LABS: COVID-19 RT-PCR UVMMC Result Negative (Negative)
[2020-07-15] MEDS: Lactated Ringers 1,000 ML 125 ML IV ×3 (04:50→19:54)
[2020-07-15] MEDS: Hydrocortisone SOD SUC. 100 MG VIAL 13 MG IVP ×3 (05:55→21:56)
[2020-07-15] MEDS: ACETAMINOPHEN 1,000 MG/100 ML BTL 400 MG IVPB ×3 (05:57→21:56)
[2020-07-15 06:50] LABS: Abs Immature Grans 0.03 10^3/uL (0.0-0.06); Absolute Basophil Count 0.02 10^3/uL (0.0-0.2); Absolute Lymphocyte Count 0.73 10^3/uL (1.2-3.4); Basophils % 0.2; HCT 33.2 % (36.0-46.0); HGB 11.3 g/dL (11.2-15.7); Immature Grans % 0.3; Lymphocytes % 6.1; MPV 11.8 fL (8.0-11.0); Monocytes % 7.5; Neutrophils % 85.9; Nucleated RBC 0 %; Platelet Count 246 10^3/uL (130-400); RBC 3.65 10^6/uL (3.93-5.22); RDW 15.5 % (11.7-14.6); RDW-SD 51.7 fL; WBC 11.99 10^3/uL (4.4-10.8)
[2020-07-15 07:07] LABS: ALT 13 U/L (14-59); AST 15 U/L (15-37); Albumin 2.3 g/dL (3.4-5.0); Alkaline Phosphatase 54 U/L (46-116); Anion Gap 4.1 mmol/L (3-11); BUN 14 mg/dL (7-18); Bilirubin, Total 0.9 mg/dL (0.2-1.0); CO2 24.9 mmol/L (21.0-32.0); CREATININE 0.83 mg/dL (0.55-1.02); Calcium 7.8 mg/dL (8.5-10.1); Chloride 103 mmol/L (98-107); Glucose 109 mg/dL (74-106); Potassium 3.9 mmol/L (3.5-5.1); Sodium 132 mmol/L (136-145); Total Protein 5.1 g/dL (6.4-8.2)
--- NOTE | 2020-07-15 07:53 | INITIAL_ITS ---
- If Service Date Differs Date of service: 07/15/20 Time of Service: 13:18 Care Management Initial Assess REASON FOR HOSPITALIZATION:: Perforated small bowel PAST MEDICAL HISTORY/PAST SURGICAL HISTORY:: Acute infarction of small intestine, atrophy of vagina, hypertension, hypothyroid, s/p CVA, abdominal hysterectomy, oophrectomy, s/p JOSE-BSO PREVIOUS FUNCTIONAL STATUS/SOCIAL/FAMILY SUPPORTS:: Gauri resides in [place] with her , and adult son. She is independent at baseline. CURRENT FUNCTIONAL STATUS:: Gauri is being closely monitored in the ICU. Dr. Solano requested CM support in coordinating PT orders through [facility], as Gauri requires assistance with ambulation at this time, per MD drain will be removed prior to discharge. CM discussed with Gauri who reported she is currently doin g outpatient PT and does not wish to have people coming into her home in the setting of Covid. Gauri reported her son was cooking the turkey she had planned to make for ving, he resides in an apartment off from her home. When asked how she was managing being inpatient during the holiday, Gauri responded positively What other choice do I have and was quite pleasant in interaction. ADVANCE DIRECTIVES:: Document not yet completed at home, patient reports intentions to attend to it. Has patient been provided with info about the portal/API?: Yes Did the patient sign up for the portal?: Yes (Previously) CODE STATUS:: Full Code INSURANCE COVERAGE / FINANCIAL ISSUES:: MCR. [place]/BS PRIMARY CARE PHYSICIAN:: Elena Stauffer POTENTIAL DISCHARGE NEEDS:: Follow up appointment with PCP, coordination of new PT orders through [facility]. PATIENT/FAMILY EDUCATION NEEDS:: Review discharge instructions, discuss Ask Me Three. ANTICIPATED BARRIERS TO DISCHARGE:: None identified. TRANSPORTATION:: Via private vehicle with family. PLAN:: Gauri continues to be closely monitored in the ICU at this time. Uni nterested in home health services at this time. Gauri will follow up with her PCP and plan of care as prescribed, she will transport via private vehicle with family.
[2020-07-15] MEDS: Levothyroxine 50 MCG TAB PO (08:42)
[2020-07-15] MEDS: Losartan 50 MG TAB 100 MG PO (08:42)
[2020-07-15] MEDS: PIPERACILLIN/TAZO 3.375 GM in Normal Saline 50 ML IVPB ×2 (08:42→16:09)
[2020-07-15] MEDS: FentaNYL/ROPIvacaine 2 mcg/ml and 0.1% 200 ML CADD Cassette EP (09:22)
--- NOTE | 2020-07-15 09:44 | PDOC.ANES ---
Date of service: 07/15/20 Time of Service: 09:45 Anesthesia Note Report Anesthesia Note: Epidural check: Pt found in ICU sitting in chair. States pain is a 1/10. pump running at 10 mL/hr. Denies itching or nausea. Dressing intact, small amount of old blood under the dressing, no signs or symptoms of infection. Pt encouraged to cough/deep breath and use IS. has been using the PCEA minimally. Plan to leave settings as is and check her again tomorrow. Pt and RN encouraged to reach out to us if any concerns or questions.
--- NOTE | 2020-07-15 10:23 | PGE_ITS ---
Date of Service Date of service: 07/15/20 Time of Service: 10:23 Assessment and Plan Assessment and plan (1) Leukocytosis: Status: Acute Assessment and plan: Improving (18.36 to 11.99 today) Urine culture and abdominal culture both with Gram negative rods. 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 S/p small bowel resection with anastamosis. NG tube with decreasing output. Dressing intact. Clamp NG x 3 hours. If output <100 then will remove. Continue with ice chips and sips of water until passing flatus Up to chair Ambulate Continue IS Continue Lovenox for DVT prophilaxis (3) UTI (urinary tract infection): Status: Acute Assessment and plan: Gram Negative rods Continue zosyn Qualifiers: Urinary tract infection type: acute cystitis Hematuria presence: without hematuria Qualified Code(s): N30.00 - Acute cystitis without hematuria (4) Hypothyroid: Status: Chronic Assessment and plan: continue with po home medications Qualifiers: Hypothyroidism type: unspecified Qualified Code(s): E03.9 - Hypothyroidism, unspecified (5) Hypertension: Status: Chronic Assessment and plan: Continue with Cozaar Qualifiers: Hypertension type: essential hypertension Qualified Code(s): I10 - Essential (primary) hypertension (6) PMR (polymyalgia rheumatica): Status: Acute Assessment and plan: Continue on Solu-Cortef IV until able to take po (7) BPV (benign positional vertigo): Status: Acute Assessment and plan: Continue Meclezine 25 mg po BID prn Qualifiers: Laterality: unspecified laterality Qualified Code(s): H81.10 - Benign paroxysmal vertigo, unspecified ear Subjective Subjective Interval history since last seen: Mrs. Felix is POD#1 from ex-lap for ruptured meckels diverticulum and mesenteric abscess. She underwent a small bowel resection with anastamosis. Her only complaint this morning is that of a sore throat and some mild numbness in her thighs. She is up in the chair washing herself when I came to see her this morning. She has been tolerating ice chips and sips of water. NG tube is in place and she has had 180 cc out since midnight. She has a ELSY drain in the right lower quadrant. She has had 90 cc of serosanguineous drainage since midnight. Urine output has been 435 cc since midnight. She is not yet passing gas. Discussed case with nurse Yu. She has no concerns about the patient at this time. Exam Const General: cooperative, comfortable and no acute distress Orientation: alert and oriented x3 HENMT Head: normocephalic and atraumatic Resp Effort & Inspection: normal respiratory effort Auscultation: clear to auscultation bilaterally Cardio Rate: regular rate Rhythm: regular rhythm GI Palpation: soft, no hepatosplenomegaly and tender (Mild tenderness along the incision) Other: [place] dressing is in place. There are a couple of small blood stains on the dressing. There is an air leak noted. Dressing was inspected and air leak was noted around the ELSY tubing so another piece of tape was applied. No air leak identified after that. Abdomen image: 1. elsy drain 2. FRANSISCO dressing Other: Gomez in place with clear urine. Back/Spine/Pelvis Other: Epidural dressing intact. Objective Last Vital Signs Temp 98.1 F 07/15/20 04:03 Pulse 64 07/15/20 09:00 Resp 18 07/15/20 09:00 BP 117/74 07/15/20 09:00 Pulse Ox 97 07/15/20 09:00 Laboratory Results - last 24 hr 07/14/20 07/14/20 07/14/20 12:40 12:55 12:55 WBC 18.36 H RBC 4.57 Hgb 14.1 Hct 41.6 MCV 91.0 MCH 30.9 MCHC 33.9 RDW 15.0 H Plt Count 351 MPV 10.8 Immature Gran % 0.4 Neutrophils % 91.6 Lymphocytes % 2.7 Monocytes % 5.2 Eosinophils % 0.0 Basophils % 0.1 Nucleated RBC % 0 Absolute Neutrophils 16.82 H Absolute Lymphocytes 0.50 L Absolute Monocytes 0.95 H Absolute Eosinophils 0.00 Absolute Basophils 0.02 VBG Lactate Sodium 129 L Potassium 3.1 L Chloride 93 L Carbon Dioxide 26.4 Anion Gap 9.6 BUN 18 Creatinine 1.03 H Estimated GFR/1.73 m2 51.82 Glucose 132 H Calcium 8.8 Total Bilirubin 1.0 AST 20 ALT 19 Alkaline Phosphatase 76 Total Protein 7.0 Albumin 3.3 L Urine Color Yellow Urine Clarity Sl cloudy Urine pH 6.0 Ur Specific [place] 1.020 Urine Protein 30 H Urine Ketones 15 H Urine Blood Moderate H Urine Nitrite Positive H Urine Bilirubin Negative Urine Urobilinogen 0.2 Ur Leukocyte Esterase Small H Urine RBC Not Applicable Urine WBC >50 H Ur Epithelial Cells Not Applicable Urine Crystals Not Applicable Urine Bacteria Many Urine Mucus Not Applicable Ur Culture Indicated? Yes Urine Glucose Negative COVID-19 PCR Nasopharyn COVID-19 PCR Ref Test Perform Site 07/14/20 07/14/20 07/15/20 14:40 16:10 06:05 WBC RBC Hgb Hct MCV MCH MCHC RDW Plt Count MPV Immature Gran % Neutrophils % Lymphocytes % Monocytes % Eosinophils % Basophils % Nucleated RBC % Absolute Neutrophils Absolute Lymphocytes Absolute Monocytes Absolute Eosinophils Absolute Basophils VBG Lactate Cancelled Sodium 132 L Potassium 3.9 D Chloride 103 Carbon Dioxide 24.9 Anion Gap 4.1 BUN 14 Creatinine 0.83 Estimated GFR/1.73 m2 >= 60.00 Glucose 109 H Calcium 7.8 L Total Bilirubin 0.9 AST 15 ALT 13 L Alkaline Phosphatase 54 Total Protein 5.1 L Albumin 2.3 L Urine Color Urine Clarity Urine pH Ur Specific [place] Urine Protein Urine Ketones Urine Blood Urine Nitrite Urine Bilirubin Urine Urobilinogen Ur Leukocyte Esterase Urine RBC Urine WBC Ur Epithelial Cells Urine Crystals Urine Bacteria Urine Mucus Ur Culture Indicated? Urine Glucose COVID-19 PCR Negative Nasopharyn COVID-19 PCR Not Applicable Ref Test [facility] 06:05 WBC 11.99 H D RBC 3.65 L Hgb 11.3 D Hct 33.2 L D MCV 91.0 MCH 31.0 MCHC 34.0 RDW 15.5 H Plt Count 246 D MPV 11.8 H Immature Gran % 0.3 Neutrophils % 85.9 Lymphocytes % 6.1 Monocytes % 7.5 Eosinophils % 0.0 Basophils % 0.2 Nucleated RBC % 0 Absolute Neutrophils 10.30 H Absolute Lymphocytes 0.73 L Absolute Monocytes 0.90 H Absolute Eosinophils 0.00 Absolute Basophils 0.02 VBG Lactate Sodium Potassium Chloride Carbon Dioxide Anion Gap BUN Creatinine Estimated GFR/1.73 m2 Glucose Calcium Total Bilirubin AST ALT Alkaline Phosphatase Total Protein Albumin Urine Color Urine Clarity Urine pH Ur Specific [place] Urine Protein Urine Ketones Urine Blood Urine Nitrite Urine Bilirubin Urine Urobilinogen Ur Leukocyte Esterase Urine RBC Urine WBC Ur Epithelial Cells Urine Crystals Urine Bacteria Urine Mucus Ur Culture Indicated? Urine Glucose COVID-19 PCR Nasopharyn COVID-19 PCR Ref Test Perform Site
--- NOTE | 2020-07-15 11:51 | NUR.NOTE ---
1123: Contacted Dr Sharp and informed her that pt was found on her knees in her room. Pt reports she purposefully went down onto her knees by herself because she wanted to clip her FRANSISCO device to something else so she could get herself into bed. Pt stated I'm frequently on my knees, like at home when I do my wood. Pt reports while she was reaching for clip on her FRANSISCO device when she tumbled over onto her back but I didn't fall, I just tumbled over pt reports no injury. Pt denies any pain. Pt states she is just embarrased. Pt denies hitting her head. 2 minimal assist back to her bed. Call light put in reach and all lines (IV, radio journalist leads, Gomez and FRANSISCO drsg) secured. Bed alarm turned on. Discussed Epidural and Lovenox tx with Dr Sharp. Pt may continue her low dose of Lovenox as ordered as long as she did not hit her head. Pt should have a walker kept near by, and pt will be seen by Physical tx. Ang Landa die cast supervisor also made aware of event as noted above.
--- NOTE | 2020-07-15 13:06 | PHACLINREV_ITS ---
Pharmacy Admission Review - Admission Clinical Review (Last Updated 07/15/20 @ 10:54 by Lydia Sharp MD) BPV (benign positional vertigo) (Acute) PMR (polymyalgia rheumatica) (Acute) S/P exploratory laparotomy (Acute ~07/14/20) UTI (urinary tract infection) (Acute) Leukocytosis (Acute) alfalfa Allergy (Severe, Verified 07/14/20 12:41) Hives Sulfa (Sulfonamide Antibiotics) Allergy (Severe, Verified 07/14/20 12:41) sick and itchy diphtheria toxoid,adsorbed Allergy (Intermediate, Verified 07/14/20 12:41) fever, pain, swelling nitrofurantoin [From Macrobid] Adverse Reaction (Severe, Verified 07/14/20 12:41) nausea,dizzy,and in bed for 2 days nitrofurantoin macrocrystalline [From Macrobid] Adverse Reaction (Severe, Veri fied 07/14/20 12:41) nausea,dizzy,and in bed for 2 days meperidine HCl [From Demerol] Adverse Reaction (Intermediate, Verified 07/14/20 12:41) vomiting Latex, Natural Rubber Adverse Reaction (Mild, Verified 07/14/20 12:41) Itching Environmental allergies Allergy (Intermediate, Uncoded 07/14/20 12:41) Itchy, watery eyes. Height 5 ft 3 in Weight 72.9 kg - Renal Dosing Renal Dosing: BUN 14 mg/dL (7-18) 07/15/20 06:05 Creatinine 0.83 mg/dL (0.55-1.02) 07/15/20 06:05 Medications needing adjustments: Reviewed (Crcl ~46.2 mL/min current meds okay) - Anticoagulation Anticoagulation: Hgb 11.3 g/dL (11.2-15.7) D 07/15/20 06:05 Hct 33.2 % (36.0-46.0) L D 07/15/20 06:05 Plt Count 246 10^3/uL (130-400) D 07/15/20 06:05 Creatinine 0.83 mg/dL (0.55-1.02) 07/15/20 06:05 DVT Prohphylaxis: Reviewed Medications: Enoxaparin Therapeutic Anticoagulation: N/A - Opiate Usage Evaluate Pain Scale/Pains Meds: Reviewed Scheduled Bowel Reg ordered if on Opiates?: No (provider aware) - Relevant Labs Sodium 132 mmol/L (136-145) L 07/15/20 06:05 Potassium 3.9 mmol/L (3.5-5.1) D 07/15/20 06:05 Chloride 103 mmol/L (98-107) 07/15/20 06:05 Electrolytes, C-Reactive P, ESR: Reviewed (Na, Cl, and K+ all improved) - DM Control DM Control: Glucose 109 mg/dL (74-106) H 07/15/20 06:05 Insulin Dosing: N/A (pre-diabetes noted in pt's medical history, A1c from March 2020 is 5.8) - Heart Failure/NM EF%, LOY's, B-Blockers, Diuretics: N/A - BP Control BP Control: Blood Pressure 101/57 Blood Pressure 114/62 Blood Pressure 101/53 Blood Pressure 103/80 Blood Pressure 117/74 Blood Pressure 106/63 Blood Pressure 102/50 Blood Pressure 110/69 Blood Pressure 102/60 Blood Pressure 87/43 If elevated: Intervened (BP has been low to normal this admission, pt did get home dose of lostartan this morning. Asked provider about adding hold parameters.) - Qtc Review If Elevated: N/A - IV to PO Switch IV Medications: Reviewed - Home Meds Home Med List reviewed: Reviewed (Separate addmin of levothyroxine from mag [facility] and multivitamin. Also separate admin of multivitamin and prednisone from [facility].) Relevent Home Meds Not ordered & why?: aspirin, atorvastatin, magnesium carbonate, prednisone (has hydrocortisone ordered), multivitamin - Current meds Current Medication Order Review: Intervened (Discontinued duplicate med orders and DI meds (had already been given)) - Comments Comments/Follow Ups: Watch BP, BG, labs, for culture results, and for med changes (IV to PO, home meds, renal dosing adjustments) Antibiotic Activity - Pharmacy Antibiotic Review Pharmacy Antibiotic Activity: C/S review (Urine and surgical cultures both growing gram negative rods. Zosyn continues.)
[2020-07-15] MEDS: Normal Saline Flush 10 ML SYR IVP ×2 (14:27→21:58)
[2020-07-15] MEDS: Normal Saline 500 ML 30 ML IV (14:47)
[2020-07-15] MEDS: Normal Saline 1,000 ML 1000 ML IV ×2 (16:10→23:35)
[2020-07-15] MEDS: Enoxaparin 40 MG/0.4 ML SYR SC (19:55)
[2020-07-16] MEDS: PIPERACILLIN/TAZO 3.375 GM in Normal Saline 50 ML IVPB ×4 (01:02→23:41)
[2020-07-16] MEDS: FentaNYL/ROPIvacaine 2 mcg/ml and 0.1% 200 ML CADD Cassette EP ×2 (02:56→22:32)
[2020-07-16 04:17] VITALS: BP 110/58; PULSE 60; RESP 17; TEMP 36.4; O2SAT 95
[2020-07-16] MEDS: Lactated Ringers 1,000 ML 125 ML IV ×3 (04:58→21:12)
[2020-07-16] MEDS: Hydrocortisone SOD SUC. 100 MG VIAL 13 MG IVP ×3 (05:55→21:09)
[2020-07-16] MEDS: ACETAMINOPHEN 1,000 MG/100 ML BTL 400 MG IVPB ×3 (05:55→21:10)
[2020-07-16] MEDS: Levothyroxine 50 MCG TAB PO (05:56)
[2020-07-16 07:00] VITALS: BP 131/70; PULSE 60; RESP 20; TEMP 36.8; O2SAT 96
[2020-07-16] MEDS: Losartan 50 MG TAB 100 MG PO (08:27)
--- NOTE | 2020-07-16 08:39 | ANES_ITS ---
Date of service: 07/16/20 Time of Service: 08:39 Anesthesia Note Report Anesthesia Note: Epidural Note: Pt resting comfortably in bed, Denies much pain. States very slight itching and noted that her left leg is a little more numb than her right. She has had no P CEA doses per pt. Dressing is clean, dry, and intact with no evidence of infection at the site. Plan to keep infusion as is for now with a trail of stopping the pump tomorrow morning. Pt is in agreement with the plan.
--- NOTE | 2020-07-16 09:11 | PT.INIE ---
Date of service: 07/16/20 Time of Service: 09:11 PT Notes Visit Reasons: PERFORATED SMALL BOWEL Physical Therapy Inpatient Initial Evaluation Date: 07/16/2020 Referring Doctor: Jumana Solano MD PT Orders: PT CONSULT: Up and walking status post laparotomy. Has epidural Precautions: Fall. Standard. Activity as tolerated. Patient Profile/Admitting Diagnosis: Gauri is a 80-year-old female who presented to the ED on 07/14/2020 with chief complaint of a constant sharp abdominal pain accompanied with diarrhea and dark urine. Patient is diagnosed with urinary tract and action and acute infarction of small intestine and is status post exploratory laparotomy and small bowel resection on postoperative day 2. 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 Independent with all aspects of ADLs prior to surgery. No falls in the past 12 months. States that she has lived a very active life and has gone for 14 weeks now twice a week at [facility] for balance exercises. Equipment Owned/DME: 4-wheeled walker Subjective: Reports being mildly loopy which she attributes to the fentanyl that she has been taking. [place] more secure with using the front wheeled walker. States that she has a chronic back issue that causes her to walk with her upper thoracic area bent a little bit. Straightening it out causes pain in her arms. She also indicates that she has had vertigo before with last episode happening 2 years ago. She takes meclizine for it with good resolution. Objective: General Observation: PAC pump in situ. Dressing over abdominal surgical incision. DOMO drain in place. Gomez catheter in place. IV in left UE. Mental Status: Alert and oriented x4 Pain: 1/10 in the surgical incision with ambulation activity ROM: Right Upper Extremity: Shoulder Flexion WFL. Shoulder abduction WFL. Elbow flexion WFL. Wrist flexion WFL. Opening and closing of hand WFL. Left Upper Extremity: Shoulder Flexion WFL. Shoulder abduction WFL. Elbow flexion WFL. Wrist flexion WFL. Opening and closing of hand WFL. Right Lower Extremity: Hip flexion WFL. Hip abduction WFL. Knee flexion WFL. Ankle dorsiflexion WFL. Ankle plantarflexion WFL. Left Lower Extremity: Hip flexion WFL. Hip abduction WFL. Knee flexion WFL. Ankle dorsiflexion WFL. Ankle plantarflexion WFL. Strength: Right Upper Extremity: Shoulder flexors 5/5. Shoulder abductors 5/5. Elbow flexors 5/5. Elbow extensors 5/5. Lockstitch Binder strong. Left Upper Extremity: Shoulder flexors 5/5. Shoulder abductors 5/5. Elbow flexors 5/5. Elbow extensors 5/5. Lockstitch Binder strong. Right Lower Extremity: Hip flexors 4/5. Hip abductors 5/5. Knee flexors 5/5. Knee extensors 5/5. Ankle dorsiflexors 5/5. Ankle plantarflexors 5/5. Left Lower Extremity:Hip flexors 4/5. Hip abductors 5/5. Knee flexors 5/5. Knee extensors 5/5. Ankle dorsiflexors 5/5. Ankle plantarflexors 5/5. Sensation: Reports numbness on the anterior lateral aspect of the left thigh otherwise intact in bilateral lower extremities as to light pressure and pain Bed Mobility/Transfers: Rolling independent Supine to sit independent Sit to supine independent Sit to stand contact-guard assist Stand to sit contact-guard assist Bed to chair contact-guard assist Chair to bed contact-guard assist Gait: 550 feet using front wheeled walker with complaints of being mildly loopy due to the fentanyl that she is taking with contact-guard assist with report of 1/10 mild ache in the surgical incision. Step through gait pattern. Age-related gamal seen. Upper thoracic mild kyphosis. Neck appeared stiff due to apprehension of gettting dizzy with head turning. Balance: Static Sitting: Normal Dynamic Sitting: Normal Static Standing: Fair Dynamic Standing: Fair Special Tests: Mobility Limitations Standardized Measure [facility] 6 clicks Basic Mobility Inpatient Short Form: Raw Score: 21 CMS Score: 29% deficit Informed Consent/Education: Patient instructed in purpose of PT consult and plan of care. Assessment: Gauri demonstrates the need for a front-wheeled walker for all mobility ADL performance, impairment with balance due to complaints of mild lightheadedness, and increased risk for falls due to admitting diagnoses and postoperative status. Patient presents with clinical signs and symptoms consistent with current/admitting diagnoses that have resulted to mobility limitations, gait instability, generalized weakness, and impairment of motor control as demonstrated by the following impairment level findings: 1. Decreased strength to B hip flexors 2. Impaired standing balance Impairments are contributing to the following functional limitations: 1. Inability to safely ambulate without assistive device 2. Increased fall risk 3. Inability to negotiate steps alone safely Patient is assessed as a complexity based on the following: History: 80-year-old female with impairment level findings, functional limitations, and past medical history as indicated above Examination: Demonstrable impairment in strength, balance, and mobility level with underlying impairments and functional limitations as documented above Presentation:Evolving Decision Makin moderate complexity Goals: Goals X1 week 1. Sit-Stand independent 2. Stand-Sit independent 3. Bed-Chair independent 4. Chair-Bed independent 5. Independent gait on level surface with use of front wheeled walker for at least 300 feet without report of lightheadedness 8. Independent stair negotiation while holding onto bilateral rails for at least 12 steps without report of lightheadedness 9. Independent with home exercise program 10. Good static and dynamic standing balance/tolerance Plan of Care/Treatment Plan: 1-2x/day, 7 days/week x 1 week. Plan of care has been reviewed with the JUNIOR QA ANALYST providing the service under Physical Therapy direction. Initiate Physical Therapy intervention for strengthening, bed mobility, transfers, gait, stairs, balance training, use of assistive device. DISCHARGE RECOMMENDATIONS: Home when cleared by surgeon. Patient will benefit from home health PT services in order to progress mobility level using least restrictive assistive ambulatory device, assess home safety, identify additional equipment needs, and establish a functional maintenance program that will increase ability of patient to remain at home. TREATMENT CODE/TIME: 37677 x 30 minutes, 24445 x 14 minutes beginning at 9:11 AM. Thank you for the opportunity to participate in the care of this patient. Viola Christensen PT, DPT, CLT [facility] [place], [place]
--- NOTE | 2020-07-16 10:56 | PGE_ITS ---
Date of Service Date of service: 07/16/20 Time of Service: 10:56 Assessment and Plan Assessment and plan (1) Leukocytosis: Status: Acute Assessment and plan: Improving (18.36 to 11.99 today) Urine culture and abdominal culture both with Gram negative rods. Continue Zosyn Labs pending right now Qualifiers: Leukocytosis type: lymphocytosis Qualified Code(s): D72.820 - Lymphocytosis (symptomatic) (2) S/P exploratory laparotomy: Status: Acute Assessment and plan: POD#2 for ruptured meckels diverticulum and mesenteric abscess. S/p small bowel resection with anastamosis. NG tube was removed Dressing intact. Has been passing flatus Up to chair Ambulate Continue IS Continue Lovenox for DVT prophilaxis Start a clear liquid diet and advance as tolerated (3) UTI (urinary tract infection): Status: Acute Assessment and plan: Gram Negative rods Continue zosyn Qualifiers: Urinary tract infection type: acute cystitis Hematuria presence: without hematuria Qualified Code(s): N30.00 - Acute cystitis without hematuria (4) Hypothyroid: Status: Chronic Assessment and plan: continue with po home medications Qualifiers: Hypothyroidism type: unspecified Qualified Code(s): E03.9 - Hypothyroidism, unspecified (5) Hypertension: Status: Chronic Assessment and plan: Continue with Cozaar Qualifiers: Hypertension type: essential hypertension Qualified Code(s): I10 - Essential (primary) hypertension (6) PMR (polymyalgia rheumatica): Status: Acute Assessment and plan: Continue on Solu-Cortef IV until able to take po (7) BPV (benign positional vertigo): Status: Acute Assessment and plan: Continue Meclezine 25 mg po BID prn Qualifiers: Laterality: unspecified laterality Qualified Code(s): H81.10 - Benign paroxysmal vertigo, unspecified ear Subjective Subjective Interval history since last seen: Mrs. Felix is doing well. She has been passing flatus since 1:30 this morning. She has minimal abdominal discomfort when coughing. DOMO in place and has about 50 cc of serosanguinous discharge. UOP is marginal. She has received 2 L of NS bolus and is on 125cc and hour of fluid. Patient feels that her feet are a bit swollen. She denies SOB Exam Const General: cooperative and comfortable Orientation: alert and oriented x3 HENMT Head: normocephalic and atraumatic Resp Effort & Inspection: normal respiratory effort Auscultation: clear to auscultation bilaterally Cardio Rate: regular rate Rhythm: regular rhythm Heart Sounds: no gallops, no murmurs and no rubs GI Inspection: normal to inspection and incision (FRANSISCO in place) Palpation: soft, no hepatosplenomegaly and tender (appropriate along incision) Auscultation: normal bowel sounds Objective Last Vital Signs Temp 98.2 F 07/16/20 07:00 Pulse 60 07/16/20 07:00 Resp 20 07/16/20 07:00 BP 131/70 07/16/20 07:00 Pulse Ox 96 07/16/20 07:00 Laboratory Results - last 24 hr 07/14/20 12:40 Urine Color Yellow Urine Clarity Sl cloudy Urine pH 6.0 Ur Specific [place] 1.020 Urine Protein 30 H Urine Ketones 15 H Urine Blood Moderate H Urine Nitrite Positive H Urine Bilirubin Negative Urine Urobilinogen 0.2 Ur Leukocyte Esterase Small H Urine WBC >50 H Urine Bacteria Many Ur Culture Indicated? Yes Urine Glucose Negative
--- NOTE | 2020-07-16 11:04 | NUR.NOTE ---
Nursing Note: Surgical service was in, and will continue IVF despite patients concerns of edema, trace noted left foot only by nursing, this is over concerns of uop. Advance diet to clears. Labs ordered as well as a patient request to have an A1c drawn. Aqua k ordered for patient comfort.
[2020-07-16 11:14] VITALS: BP 129/69; PULSE 51; RESP 19; TEMP 36.4; O2SAT 100
[2020-07-16 11:19] LABS: Abs Immature Grans 0.06 10^3/uL (0.0-0.06); Absolute Basophil Count 0.02 10^3/uL (0.0-0.2); Absolute Eosinophil Count 0.03 10^3/uL (0.0-0.7); Absolute Lymphocyte Count 1.07 10^3/uL (1.2-3.4); Absolute Monocyte Count 0.98 10^3/uL (0.1-0.8); Absolute Neutrophil Count 7.47 10^3/uL (1.2-6.7); Basophils % 0.2; Eosinophils % 0.3; HCT 34.7 % (36.0-46.0); HGB 11.4 g/dL (11.2-15.7); Immature Grans % 0.6; Lymphocytes % 11.1; MCH 30.8 pg (27.0-33.0); MCHC 32.9 % (32.0-36.0); MCV 93.8 fL (80-95); MPV 11.6 fL (8.0-11.0); Monocytes % 10.2; Neutrophils % 77.6; Nucleated RBC 0 %; Platelet Count 291 10^3/uL (130-400); RDW 15.9 % (11.7-14.6); RDW-SD 55.5 fL; WBC 9.63 10^3/uL (4.4-10.8)
[2020-07-16 11:25] LABS: Anion Gap 8.2 mmol/L (3-11); BUN 15 mg/dL (7-18); CO2 23.8 mmol/L (21.0-32.0); CREATININE 0.87 mg/dL (0.55-1.02); Calcium 8.5 mg/dL (8.5-10.1); Chloride 103 mmol/L (98-107); Glucose 80 mg/dL (74-106); Magnesium 1.9 mg/dL (1.8-2.4); Potassium 3.5 mmol/L (3.5-5.1); Sodium 135 mmol/L (136-145)
[2020-07-16] MEDS: Furosemide 20 MG/2 ML VIAL IVP (11:44)
[2020-07-16] MEDS: predniSONE 10 MG TAB 20 MG PO (11:45)
[2020-07-16 12:11] LABS: Hemoglobin A1C 5.6 % (<5.7)
--- NOTE | 2020-07-16 13:28 | CMPROGNOTE_ITS ---
- If Service Date Differs Date of service: 07/16/20 Time of Service: 13:28 Care Management Progress Note S/O:Gauri was sitting up in a chair when CM met with her. She was pleasant and engaged readily with CM. Gauri stated that she is very independent at baseline and laughed out loud when asked if she needed any assistive devices with ambulation. She stated that it is her norm to go to the cellar and bring 2 large buckets with logs up the stairs, one in each hand. She shared that her son who lives on the property, has autism but is a college grad and highly functional. Years ago in one of his programs he met a disabled young man and Gauri became friends with his mother. She is now the main support person for her friend and helps her to navigate the system, attempting to get her son's needs met. He is apparently severely disabled and lives in a private home with 24/7 caregivers. Gauri had a SB rsesection on Sunday evening and is just beginning to receive clear liquids. She denies pain and states wants to ambulate as much as possible but must wait for staff to accompany her. She shared that it is easier in the middle of the night because the staff is less busy. Gauri's vital signs are stable and her elsy is draining serosanguinous fluid. A: Gauri is a pleasant 80 year old woman admitted to [facility] on 07/14/20 with a perforated small bowel P: Gauri will likely go home with no new services. HH RN has been recommended, but as of this time, she is declining home services. She will follow up with her surgeon and PCP and discharge plan of care and transport with family. CM will continue to support patient and discharge planning considerations.
--- NOTE | 2020-07-16 15:14 | PT.INTREAT ---
Date of service: 07/16/20 Time of Service: 14:50 PT Notes Visit Reasons: PERFORATED SMALL BOWEL Inpatient Physical Therapy Treatment Note [facility] Date: 07/16/2020 PRECAUTIONS: Fall SUBJECTIVE: Gauri is agreeable to participating in PT. She reports that she is somewhat tired today, as she did not get much sleep last night. OBJECTIVE: Held further PT, per MD, until anesthesia looks at epidural catheter. PAIN: No complaints of pain BED MOBILITY/TRANSFERS Supine-sit: I Sit-supine: I Sit-stand: S Stand-sit: S GAIT Assistive Device: FWW Weight bearing: Full Assist: S Distance: 5' x2 THEREX: Patient was instructed in several lower extremities strengthening exercises, in a standing position, as per flow sheet. Patient requires FWW support as she continues to feel slightly loopy from pain medication. ASSESSMENT: PT session was limited this afternoon due to issue with epidural catheter. Patient was able to tolerate several standing lower extremity strengthening exercises. She would benefit from continued gait training with least restrictive device, and global strengthening. PLAN: Continue with global strengthening and gait training with least restrictive device. TREATMENT CODE/TIME: 15 minutes; [id number]
[2020-07-16 16:30] VITALS: BP 122/61; PULSE 51; RESP 17; TEMP 36.4; O2SAT 95
[2020-07-16] MEDS: Enoxaparin 40 MG/0.4 ML SYR SC (19:36)
[2020-07-16] MEDS: Normal Saline Flush 10 ML SYR IVP (23:41)
[2020-07-17 00:54] VITALS: BP 150/70; PULSE 56; RESP 18; TEMP 37.4; O2SAT 95
[2020-07-17 03:00] VITALS: O2SAT 95
[2020-07-17] MEDS: Lactated Ringers 1,000 ML 125 ML IV (04:12)
[2020-07-17 05:02] VITALS: BP 159/72; PULSE 63; RESP 18; TEMP 36.6; O2SAT 97
[2020-07-17 05:05] VITALS: BP 159/72; PULSE 63; RESP 18; TEMP 36.6; O2SAT 97
[2020-07-17] MEDS: ACETAMINOPHEN 1,000 MG/100 ML BTL 400 MG IVPB (05:48)
[2020-07-17] MEDS: Levothyroxine 50 MCG TAB PO (05:48)
[2020-07-17 07:24] VITALS: BP 145/84; PULSE 52; RESP 18; TEMP 36.7; O2SAT 98
[2020-07-17] MEDS: PIPERACILLIN/TAZO 3.375 GM in Normal Saline 50 ML IVPB (08:20)
[2020-07-17] MEDS: predniSONE 10 MG TAB PO (08:20)
[2020-07-17] MEDS: Losartan 50 MG TAB 100 MG PO (08:20)
--- NOTE | 2020-07-17 08:52 | ANES_ITS ---
Date of service: 07/17/20 Time of Service: 08:52 Anesthesia Note Report Anesthesia Note: Epidural check: Was called to asses epidural site last evening in regards to site potentially leaking. Dressing was found intact with a few rolled up pieces of tape which wer e replaced. no obvious pooling of fluid noted in dressing and tape boarders are dry, but gauze under dressing does appear slightly damp. There is no evidence of infection. Catheter is at ~13 cm at the skin. Discussed with pt and decision was made to leave in overnight. This morning pt is in bed with zero pain, still with slight numbness of left leg, pump at 10 mL/hg. Discussed stopping the infusion and reassess her pain later this afternoon and make a plan to remove the epidural timed around her enoxaparin dose.
--- NOTE | 2020-07-17 10:13 | PGE_ITS ---
Date of Service Date of service: 07/17/20 Time of Service: 10:13 Assessment and Plan Assessment and plan (1) Leukocytosis: Status: Acute Assessment and plan: Resolved Urine culture and abdominal culture both with Gram negative rods. 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 S/p small bowel resection with anastamosis. Dressing with some blood on it. Has been passing flatus. No BM yet Tolerating a soft diet Up to chair Ambulate Continue IS Stop Lovenox, restart aspirin Dulcolax suppository Potentially home today (3) UTI (urinary tract infection): Status: Acute Assessment and plan: Gram Negative rods Continue zosyn Qualifiers: Urinary tract infection type: acute cystitis Hematuria presence: witho ut hematuria Qualified Code(s): N30.00 - Acute cystitis without hematuria (4) Hypothyroid: Status: Chronic Assessment and plan: continue with po home medications Qualifiers: Hypothyroidism type: unspecified Qualified Code(s): E03.9 - Hypothyroidism, unspecified (5) Hypertension: Status: Chronic Assessment and plan: Continue with Cozaar Qualifiers: Hypertension type: essential hypertension Qualified Code(s): I10 - Essential (primary) hypertension (6) PMR (polymyalgia rheumatica): Status: Acute Assessment and plan: Continue on Solu-Cortef IV until able to take po (7) BPV (benign positional vertigo): Status: Acute Assessment and plan: Continue Meclezine 25 mg po BID prn Qualifiers: Laterality: unspecified laterality Qualified Code(s): H81.10 - Benign paroxysmal vertigo, unspecified ear Subjective Subjective Interval history since last seen: Gauri is doing well. She has been eating without N/V. She continues to pass gas but has not had a BM. Urine output increased substantially yesterday with the lasix. DOMO putting out more serous fluid. Nursing staff has noted a leak. Also had some bleeding from the incision site yesterday. Fentanyl was stopped by Cyrus this morning. Exam Const General: cooperative, no acute distress and well developed Orientation: alert, awake and oriented x3 HENMT Head: normocephalic and atraumatic Resp Effort & Inspection: normal respiratory effort Auscultation: clear to auscultation bilaterally Cardio Rate: regular rate Rhythm: regular rhythm GI Inspection: normal to inspection Palpation: soft and tender (mild tenderness around the incision.) Auscultation: normal bowel sounds Objective Last Vital Signs Temp 98.1 F 07/17/20 07:24 Pulse 52 L 07/17/20 07:24 Resp 18 07/17/20 07:24 BP 145/84 H 07/17/20 07:24 Pulse Ox 98 07/17/20 07:24 Laboratory Results - last 24 hr 07/16/20 07/16/20 07/16/20 11:05 11:05 11:05 WBC 9.63 RBC 3.70 L Hgb 11.4 Hct 34.7 L MCV 93.8 MCH 30.8 MCHC 32.9 RDW 15.9 H Plt Count 291 MPV 11.6 H Immature Gran % 0.6 Neutrophils % 77.6 Lymphocytes % 11.1 Monocytes % 10.2 Eosinophils % 0.3 Basophils % 0.2 Nucleated RBC % 0 Absolute Neutrophils 7.47 H Absolute Lymphocytes 1.07 L Absolute Monocytes 0.98 H Absolute Eosinophils 0.03 Absolute Basophils 0.02 Sodium 135 L Potassium 3.5 Chloride 103 Carbon Dioxide 23.8 Anion Gap 8.2 BUN 15 Creatinine 0.87 Estimated GFR/1.73 m2 >= 60.00 Glucose 80 Hemoglobin A1c 5.6 Calcium 8.5 Magnesium 1.9
--- NOTE | 2020-07-17 10:43 | DSE_ITS ---
Date of service: 07/17/20 Time of Service: 10:43 DS: Diagnosis Discharge Diagnosis (1) Leukocytosis: Status: Acute (2) S/P exploratory laparotomy: Status: Acute (3) UTI (urinary tract infection): Status: Acute (4) Hypothyroid: Status: Chronic (5) Hypertension: Status: Chronic (6) PMR (polymyalgia rheumatica): Status: Acute (7) BPV (benign positional vertigo): Status: Acute Discharge Plan Disposition Patient Disposition: HOME Condition: Stable Discharge Details Reason For Visit: PERFORATED SMALL BOWEL Admit Date/Time: 07/14/20 18:02 Admit Provider: Jumana Solano Attending Provider: Jumana Solano Primary Care Provider: [facility] Hospital Course Hospital Course: Patient is a 79-year-old female who on Sunday (07/12) started to feel poorly, she had nausea, fever, chills, no appetite and abdominal pain more on the right side. This is persisted throughout Sunday,Sunday and . She did have a bowel movement 0n 07/14 but it was liquid and brown. There was no blood. She had rebound and guarding in the right lower quadrant. She had a open appe ndectomy at age 18. She had ovarian cancer 10 to 12 years ago and had 2 surgeries for this. She has not had chemo or radiation. CT scan revealed perforated small bowel with localized free air within the mesentery. No prior History of small bowel obstructions in the past. For no problems with anesthesia in the past. 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 She is not on any other blood thinners. She has a history of urinary tract infection. She is on prednisone on 10 mg a day for PMR. She has been on this for over a year She was taken to the Operating room by Dr. Solano on 07/14 for an exploratory laparotomy. She was noted to have what looked like perforated meckels diverticulum and a small abscess within the loops of small bowel. A small bowel resection was done with anastamosis. Patient had an epidural placed for pain control. POD#1 patient was doing well. NG tube output was minimal so it was removed. She had great bowel sounds. POD#2 she started to pass flatus and a diet was started and advanced from clears to a soft, low residual diet by POD#3. Epidural was shut of the morning of her discharge. Once the epidural was removed at 1 pm, the patient was watched for another few hours. Patient was started on Zosyn the day of her admission. Cultures came back with Klebsiela pneumonia both in her urine and her abdomen. Antibiotics were switched to Levaquin daily. She will finish 10 days of antibiotics at home. She was started on Oxycodon 5 mg q 6 hours as needed for pain. Also asked to take tylenol and ibuprofen as needed. She had a FRANSISCO dressing placed after surgery. Dressing was changed on 07/17. Will have her come in to the office on sunday to see Dr. Solano for a dressing change and follow up from surgery. Home Meds and New Rx's Prescriptions: New acetaminophen [Tylenol] 325 mg tablet 650 mg PO Q6H PRNQty: 30 RF: 0 ibuprofen 200 mg capsule 400 mg PO Q6H PRNQty: 30 RF: 0 oxycodone 5 mg tablet 2.5 mg PO Q6H PRNQty: 10 RF: 0 levofloxacin 500 mg tablet 500 mg PO DAILY Qty: 7 RF: 0 Continued magnesium carbonate 250 mg capsule 250 mg PO DAILY RF: 0 PreserVision AREDS-2 [id number] [id number]-mg capsule 1 tab PO DAILY RF: 0 losartan 100 mg tablet 100 mg PO DAILY Qty: 90 RF: 3 aspirin 325 mg tablet 325 mg PO DAILY RF: 0 levothyroxine 50 mcg capsule 50 mcg PO DAILY Qty: 90 RF: 4 atorvastatin 20 mg tablet 20 mg PO DAILY Qty: 90 RF: 3 meclizine 25 mg tablet 25 mg PO BID PRN (Reason: dizziness) Qty: 30 RF: 0 prednisone 10 mg tablet 10 mg PO DAILY RF: 0 Discharge Instructions Additional Instructions: Activity at Home after surgery: 1. Make sure you walk outside at least 4 times per day 2. You should be able to climb a flight of stairs 3. No driving while in pain or taking pain medications 4. No strenuous activity or heavy lifting for 4 weeks (open surgery) Diet, Nutrition, & wound healin. Avoid alcohol until after you are recovered from your surgery 2. Make sure to eat plenty of lean protein (meat, fish, eggs, cottage cheese, beans) 3. Eat a variety of fruits and vegetables. Eat plenty of high fiber foods to avoid constipation. 4. Drink plenty of liquids to stay hydrated and avoid constipation Pain Medications: 1. Tylenol 650 mg every 6 hours and Ibuprofen 400 mg every 6 hours. You may alternate between the two medications 2. If a narcotic has been prescribed take as directed only for breakthrough pain For Constipation: 1. Take Milk of Magnesia or MiraLax as needed for constipation Other: 1. You may shower daily. Do not scrub the incisions 2. Do not soak the incisions for 1 week 3. You may alternate ice and heat as needed for pain and swelling Wound Care: 1. Keep the incisions clean and dry Please call our office if you develop: 1. Fevers >101.5 2. Nausea or Vomiting 3. Worsening pain 4. Redness and thick discharge from the wounds If after hours please call the Hospital at and ask to speak to the on-call surgeon Stand Alone Forms: Nursing Discharge Form Referrals: Jumana Solano DO [OSTEOPATHIC DOCTOR] - 07/21/20 1:00 pm Activity:: no lifting >20 lb Equipment/Supplies:: No Equipment Needed Diet:: As Tolerated Discharge Orders Discharge Orders: Discharge Order (Routine); Ordered 07/17/20 Ordered By: Lydia Sharp DS: Summary Status at Discharge Functional status at discharge: independent ambulation Overall status at discharge: patient is progressing back to baseline Mental Status: mental status grossly normal Speech and Movement: speech and movement normal Mood: congruent mood Affect: normal affect Exam Const General: cooperative, comfortable and no acute distress HENMT Head: normocephalic and atraumatic Resp Effort & Inspection: normal respiratory effort Auscultation: clear to auscultation bilaterally Cardio Rate: regular rate Rhythm: regular rhythm GI Inspection: incision (c/d/i) Palpation: soft and tender Auscultation: normal bowel sounds Psych Mental Status: mental status grossly normal Speech and Movement: speech and movement normal Mood: congruent mood Affect: normal affect DS: Data Vitals/I&O Vitals and I&O: Vital Signs Temperature 98.1 F 07/17/20 07:24 Temperature Source Temporal Artery Scan 07/17/20 07:24 Pulse 52 L 07/17/20 07:24 Pulse Rhythm Regular 07/17/20 09:16 Pulse 57 L 07/15/20 12:00 Respiratory Rate 18 07/17/20 07:24 Respiratory Effort Non-Labored 07/17/20 09:16 Respiratory Depth Normal 07/17/20 09:16 Respiratory Pattern Normal 07/17/20 09:16 Blood Pressure 145/84 H 07/17/20 07:24 Blood Pressure Mean 91 07/15/20 13:31 Blood Pressure Position Sitting 07/15/20 08:00 Pulse Oximetry 98 07/17/20 07:24 Oxygen Delivery Method Room Air 07/17/20 07:24 Oxygen Flow Rate 0 07/17/20 07:24 Pain Level 0 07/17/20 09:13 Comment 07/16/20 04:17 Intake & Output 07/16/20 07/16/20 07/17/20 11:59 23:59 11:59 Intake Total 1150 / 3690 2540 / 3690 2460.417 / 2460.417 Output Total 1974 / 1974 590 / 590 Balance 775 / 1715 940 / 1715 1870.417 / 1870.417 Intake: IV 1150 / 3450 2300 / 3450 1935.417 / 1935.417 Oral 240 / 240 525 / 525 Output: Drainage 50 / 50 Mid Abdomen 50 / 50 Urine 325 / 1925 1600 / 1925 590 / 590 Other: Urine Color Light Melissa Pale Yellow Urine Appearance Clear Clear Clear Comment Dr. Renee has ordered a now dose of lasix to increase uop Data Completed and Pending Labs on day of discharge: Labs from last 24 hours 07/16/20 07/16/20 07/16/20 11:05 11:05 11:05 WBC 9.63 RBC 3.70 L Hgb 11.4 Hct 34.7 L MCV 93.8 MCH 30.8 MCHC 32.9 RDW 15.9 H Plt Count 291 MPV 11.6 H Immature Gran % 0.6 Neutrophils % 77.6 Lymphocytes % 11.1 Monocytes % 10.2 Eosinophils % 0.3 Basophils % 0.2 Nucleated RBC % 0 Absolute Neutrophils 7.47 H Absolute Lymphocytes 1.07 L Absolute Monocytes 0.98 H Absolute Eosinophils 0.03 Absolute Basophils 0.02 Sodium 135 L Potassium 3.5 Chloride 103 Carbon Dioxide 23.8 Anion Gap 8.2 BUN 15 Creatinine 0.87 Estimated GFR/1.73 m2 >= 60.00 Glucose 80 Hemoglobin A1c 5.6 Calcium 8.5 Magnesium 1.9 Preliminary micro results at discharge 07/14/20 17:17 Surgical Culture - Preliminary Peritoneal Klebsiella pneumoniae Gram Positive Annalise Gram Positive Annalise#2 Gram Positive Annalise#3 07/14/20 17:17 Anaerobic Culture - Preliminary Peritoneal PFSH Medical History (Updated 07/15/20 @ 10:54 by Lydia Sharp MD) 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) Back pain BPV (benign positional vertigo) Hyperlipidemia Hypertension Hypothyroid Osteoarthritis PMR (polymyalgia rheumatica) Pre-diabetes Status post CVA Surgical History (Updated 07/15/20 @ 10:34 by Lydia Sharp MD) Abdominal hysterectomy (~1966) Oophrectomy, Both (~1966) with Hyst S/P exploratory laparotomy (~07/14/20) S/P JOSE-BSO (08/26/15) Pt states pathology indicated early Ovarian cancer Diagnosed in 1964 Family History Mother , age 34 Lupus Father , age 72 Heart disease Diabetes Hypertension Sister Hyperlipidemia Hypertension Sister Hypertension Hyperlipidemia Brother Asthma Hyperlipidemia Hypertension Son Alcohol abuse Past Asthma Hyperlipidemia Hypertension Autism Depression Substance abuse in the past Maternal Grandfather , age 85 No problems noted. Paternal Grandfather , age 87 Prostate cancer Maternal Grandmother , age 85 No problems noted. Paternal Grandmother , age 76 Breast cancer Social History Smoking/Tobacco Use Status: Never Second Hand Exposure: Yes Smoking risk assessment performed?: Yes Alcohol Intake: current Alcohol Intake frequency: a few times a month Alcohol type: wine and hard liquor Drug use: Never Substance use type: does not use Household members: spouse and other Details: autistic son lives in apartment attached to house Housing: house Communication Needs: Corrective Lenses Do you need help understanding health information?: Rarely Pets and animals: Yes Pets and animals: cat(s) Sexually active: No Do you think of yourself as: straight/heterosexual Current gender identity: female What is your relationship status?: How often do you talk on the phone with friends or family?: three or more times per week How often do you get together with friends or relatives?: three or more times per week How often do you attend samaritan or baptism services?: decline to answer Do you belong to any clubs or organized social groups?: yes Panel score (0-1 are the most socially isolated patients): 3 What type of physical activity do you participate in: other Details: housework, yard work, gardening, pet care, stairs Frequency: daily Irina/Islam: none Special irina needs: Yes (If I'm dying keep clergy & harps away) Seatbelt use: always Drive intox or ride w/intox local flatbed driver: No Do you feel safe at home: Yes Do you feel safe in your relationship?: Yes
[2020-07-17] MEDS: levoFLOXacin 500 MG TAB PO (11:25)
[2020-07-17] MEDS: Furosemide 20 MG/2 ML VIAL IVP (11:25)
[2020-07-17] MEDS: Bisacodyl 10 MG SUPP PR (11:25)
[2020-07-17] MEDS: Ibuprofen 600 MG TAB PO (11:25)
--- NOTE | 2020-07-17 11:47 | PT.INTREAT ---
PT Notes Visit Reasons: PERFORATED SMALL BOWEL Inpatient Physical Therapy Treatment Note [facility] Date: 07/17/20 PRECAUTIONS: SUBJECTIVE:Pt reports that she is starting to get more sensation in her R leg. OBJECTIVE: Sit-stand: SBA Stand-sit: SBA GAIT Assistive Device: FWW/IV pole Weight bearing: full Assist: CGA/SBA Distance: 500ft with walker and 250ft with IV pole THEREX: Pt completed LE strengthening ther ex as per flow sheet while seated and standing. ASSESSMENT: Pt tolerated today's session very and was very motivated during her session today. PLAN: Cont as per PT POC. TREATMENT CODE/TIME: 06-30:25 (25) KSENIA MESA
--- NOTE | 2020-07-17 13:44 | PDOC.ANES ---
Date of service: 07/17/20 Time of Service: 13:44 Anesthesia Note Report Anesthesia Note: Epidural has been off for ~5 hrs. Pts pain is up to a 2/10, numbness in left leg is almost completely resolved. Catheter removed with intact tip, and a small dressing applied.
[2020-07-17 15:41] VITALS: BP 151/82; PULSE 73; RESP 18; TEMP 36.3; O2SAT 97
--- NOTE | 2020-07-17 20:10 | CMDISCH_ITS ---
- If Service Date Differs Date of service: 07/17/20 Time of Service: 20:10 LACE Index Scoring Tool - Questions: Length of Stay (in days): 4 - 6 Acuity (Admit via E.D.?): Yes E.D. Visits: 2 - Answers: Total Score: 9 Risk of Readmission: Low Risk Care Management Discharge Reason for Hospitalization: Perforated small bowel Discharge Plan: Gauri will return home with no new services at this time. She will be driven home via private vehicle. She will follow up with her PCP, [facility], and her discharge plan of care. Patient/Family Education Needs: Review discharge instructions regarding activity levels and medications, discussion of self care needs including ask me three.
--- NOTE | 2020-07-21 12:21 | INDS_ITS ---
Date of service: 07/21/20 Time of Service: 12:21 PT Notes Visit Reasons: PERFORATED SMALL BOWEL Physical Therapy Inpatient Discharge Summary Date: 07/21/2020 Date of service: 07/16/2020 through 07/17/2020 This is a clinical summary of care provided on the duration of dates listed above. No charge was made in the completion of this documentation. Referring Doctor: Jumana Solano MD PT Orders: PT CONSULT: Up and walking status post laparotomy. Has epidural Precautions: Fall. Standard. Activity as tolerated. Patient Profile/Admitting Diagnosis: Gauri is a 80-year-old female who presented to the ED on 07/14/2020 with chief complaint of a constant sharp abdominal pain accompanied with diarrhea and dark urine. Patient is diagnosed with urinary tract and action and acute infarction of small intestine and is status post exploratory laparotomy and small bowel resection on postoperative day 2. 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 Independent with all aspects of ADLs prior to surgery. No falls in the past 12 months. States that she has lived a very active life and has gone for 14 weeks now twice a week at [facility] for balance exercises. Equipment Owned/DME: 4-wheeled walker Subjective: NT. See most recent DIRECTOR OF THERAPY SERVICES notes. Objective: General Observation: NT. See most recent DIRECTOR OF THERAPY SERVICES notes. Mental Status: NT. See most recent DIRECTOR OF THERAPY SERVICES notes. Pain: NT. See most recent DIRECTOR OF THERAPY SERVICES notes. ROM: Right Upper Extremity: Shoulder Flexion WFL. Shoulder abduction WFL. Elbow flexion WFL. Wrist flexion WFL. Opening and closing of hand WFL. Left Upper Extremity: Shoulder Flexion WFL. Shoulder abduction WFL. Elbow flexion WFL. Wrist flexion WFL. Opening and closing of hand WFL. Right Lower Extremity: Hip flexion WFL. Hip abduction WFL. Knee flexion WFL. Ankle dorsiflexion WFL. Ankle plantarflexion WFL. Left Lower Extremity: Hip flexion WFL. Hip abduction WFL. Knee flexion WFL. Ankle dorsiflexion WFL. Ankle plantarflexion WFL. Strength: Right Upper Extremity: Shoulder flexors 5/5. Shoulder abductors 5/5. Elbow flexors 5/5. Elbow extensors 5/5. Marble Setter strong. Left Upper Extremity: Shoulder flexors 5/5. Shoulder abductors 5/5. Elbow flexors 5/5. Elbow extensors 5/5. Marble Setter strong. Right Lower Extremity: Hip flexors 4/5. Hip abductors 5/5. Knee flexors 5/5. Knee extensors 5/5. Ankle dorsiflexors 5/5. Ankle plantarflexors 5/5. Left Lower Extremity:Hip flexors 4/5. Hip abductors 5/5. Knee flexors 5/5. Knee extensors 5/5. Ankle dorsiflexors 5/5. Ankle plantarflexors 5/5. Sensation: Reports numbness on the anterior lateral aspect of the left thigh otherwise intact in bilateral lower extremities as to light pressure and pain Bed Mobility/Transfers: Rolling independent Supine to sit independent Sit to supine independent Sit to stand supervision Stand to sit supervision Bed to chair supervision Chair to bed supervision Gait: 550 feet using front wheeled walker with complaints of being mildly loopy due to the fentanyl that she is taking with contact-guard assist with report of 1/10 mild ache in the surgical incision. Step through gait pattern. Age- related gamal seen. Upper thoracic mild kyphosis. Neck appeared stiff due to apprehension of gettting dizzy with head turning. Balance: Static Sitting: Normal Dynamic Sitting: Normal Static Standing: Fair Dynamic Standing: Fair Assessment: Gauri continues to demonstrate the need for a front-wheeled walker for all mobility ADL performance, impairment with balance and increased risk for falls due to admitting diagnoses and postoperative status. Patient continues to present with clinical signs and symptoms consistent with current/admitting diagnoses that have resulted to mobility limitations, gait instability, generalized weakness, and impairment of motor control as demonstrated by the following impairment level findings: 1. Decreased strength to B hip flexors 2. Impaired standing balance Impairments are continuing to contributing to the following functional limitations: 1. Inability to safely ambulate without assistive device 2. Increased fall risk 3. Inability to negotiate steps alone safely Goals: Goals X1 week 1. Sit-Stand independent MET 2. Stand-Sit independent MET 3. Bed-Chair independent NOT MET 4. Chair-Bed independent NOT MET 5. Independent gait on level surface with use of front wheeled walker for at least 300 feet without report of lightheadedness NOT MET 8. Independent stair negotiation while holding onto bilateral rails for at least 12 steps without report of lightheadedness NOT MET 9. Independent with home exercise program NOT MET 10. Good static and dynamic standing balance/tolerance NOT MET DISCHARGE RECOMMENDATIONS: Home when cleared by surgeon. Patient will benefit from home health PT services in order to progress mobility level using least restrictive assistive ambulatory device, assess home safety, identify additional equipment needs, and establish a functional maintenance program that will increase ability of patient to remain at home. TREATMENT CODE/TIME: IN Thank you for the opportunity to participate in the care of this patient. Viola Christensen PT, DPT, CLT [facility] [place], [place]
== END 2020-07-17 16:35 | disposition home or self-care (01) | DRG 329 ==
LOC: ER 12:50 → ICU 21:33 → MS 07-15 15:08
PROVIDERS: Surgery; Admitting Provider Surgery; Emergency Provider Physician Assistant; PCP Nurse Practitioner; Visit Provider Surgery
PROC: 0DTA0ZZ Resection of Jejunum, Open Approach (ICD-10-PCS; CPT 49000; principal; 2020-07-14 15:30)
DX: K55.021 Focal (segmental) acute infarction of small intestine (principal); K65.1 Peritoneal abscess; K63.1 Perforation of intestine (nontraumatic); N30.00 Acute cystitis without hematuria; I10 Essential (primary) hypertension; E03.9 Hypothyroidism, unspecified; Z86.73 Personal history of transient ischemic attack (TIA), and cerebral infarction without residual deficits; Q43.0 Meckel's diverticulum (displaced) (hypertrophic); M35.3 Polymyalgia rheumatica; H81.10 Benign paroxysmal vertigo, unspecified ear; B96.1 Klebsiella pneumoniae [K. pneumoniae] as the cause of diseases classified elsewhere; Z85.43 Personal history of malignant neoplasm of ovary; Z79.52 Long term (current) use of systemic steroids
CPT/HCPCS: 44120; 36415; 80048; 80053; 87077; 96361; 96365; 96368; 97110; 97162; 97530; 99222; 99223; 99285; J1650; NC; U0003; 74177; 81003; 81015; 83036; 83605; 83735; 85025; 87070; 87075; 87086; 87186; 87205; 88307; J0131; J0696; J1720; J1941; J2001; J2250; J2405; J2543; J2704; J3490; J7512

== ENCOUNTER 2020-07-21 03:58 | Outpatient (CLI) | payer MEDICARE, BC, SELFPAY ==
[2020-07-21 12:18] LABS: Hemoglobin A1C 5.7 % (<5.7)
[2020-07-21 13:05] LABS: Anion Gap 7.5 mmol/L (3-11); BUN 13 mg/dL (7-18); CO2 30.5 mmol/L (21.0-32.0); CREATININE 0.95 mg/dL (0.55-1.02); Calcium 9.2 mg/dL (8.5-10.1); Chloride 99 mmol/L (98-107); Estimated GFR 56.89 (mL/min/1.73m2); Glucose 110 mg/dL (74-106); Potassium 3.9 mmol/L (3.5-5.1); Sodium 137 mmol/L (136-145); TSH 2.28 uIU/mL (0.36-3.74)
== END 2020-07-21 04:18 ==
PROVIDERS: PCP Nurse Practitioner; Visit Provider Nurse Practitioner
DX: I10 Essential (primary) hypertension (principal); R73.03 Prediabetes; Z48.815 Encounter for surgical aftercare following surgery on the digestive system; M35.3 Polymyalgia rheumatica; I49.1 Atrial premature depolarization
CPT/HCPCS: 36415; 80048; 83036; 84132; 84443

== ENCOUNTER 2020-07-21 13:43 | Outpatient (CLI) | payer MEDICARE, BC, SELFPAY ==
--- NOTE | 2020-07-21 13:30 | RT.EKG_ITS ---
APPROVED REPORT Exam: Resting ECG Patient Location: O HR:83 bpm ECG Measurements Heart Rate 83 AXIS MT 119 P 66 QRSd 80 QRS 42 QT 410 T 26 QTc 458 Conclusion Sinus rhythm...normal P axis, V-rate 60- 99 Atrial premature complex...SV complex w/ short R-R interval
== END 2020-07-21 14:03 ==
PROVIDERS: PCP Nurse Practitioner; Visit Provider Surgery
DX: I10 Essential (primary) hypertension (principal); I49.9 Cardiac arrhythmia, unspecified; M35.3 Polymyalgia rheumatica
CPT/HCPCS: 36415; 80048; 83036; 84443; 93005; 93010

== ENCOUNTER → 2020-08-04 12:56 | Outpatient (BNVA) | payer MEDICARE, BC, SELFPAY | PROVIDERS: PCP Nurse Practitioner; Referring Provider Nurse Practitioner; Visit Provider Surgery | DX: I10 Essential (primary) hypertension (principal); Z48.815 Encounter for surgical aftercare following surgery on the digestive system; K63.1 Perforation of intestine (nontraumatic) ==

== ENCOUNTER → 2020-08-11 12:58 | Outpatient (BNVA) | payer MEDICARE, BC, SELFPAY | PROVIDERS: PCP Nurse Practitioner; Referring Provider Nurse Practitioner; Visit Provider Surgery | DX: I10 Essential (primary) hypertension (principal); Z48.815 Encounter for surgical aftercare following surgery on the digestive system; K63.1 Perforation of intestine (nontraumatic) ==

== ENCOUNTER 2021-01-31 01:14 | Outpatient (CLI) | payer MEDICARE, BC, SELFPAY ==
--- NOTE | 2021-01-31 15:00 | DI.MAMMO_ITS ---
Exam(s) MAMMO SCREENING EXAM: MAMMO SCREENING CLINICAL HISTORY: screening. TECHNIQUE: Bilateral full field digital CC and MLO mammographic images were obtained with 3D tomosyn thesis and utilizing computer aided detection (CAD). COMPARISON: Prior mammograms dating back to 2010, the most recent being . FINDINGS: There are no new significant radiograph findings in the right breast. Benign microcalcifications in the upper-outer quadrant of the right breast are again noted. The left breast there is a small group of microcalcifications located approximately 5 cm in from the nipple which is increased in number from previous. Sys 2D spot compression views recommended. There is no significant architectural distortion nor skin thickening-retraction. IMPRESSION: No radiographic evidence of malignancy in the right breast Left breast microcalcification group which requires additional spot Mag views. BI-RADS Category 0 - Assessment Incomplete: Need additional imaging evaluation Breast Density - Category B - Scattered areas of fibroglandular density Breast density Category C or D implies that the patient has dense breast tissue. Dense breast tissue can make it harder to find cancer on a mammogram. Dense breast tissue is also associated with an incr eased risk of breast cancer. This information about the result of the mammogram report was provided to the patient to raise their awareness. Use this report when you speak with the patient about their risks for breast cancer, which includes their family history. At that time, you may recommend additional screening tests (Ultrasoun d or MRI) as these tests may add significant information. A negative radiographic report should not delay biopsy if a dominant or clinically suspicious mass is present. Up to ten percent of cancers are not identified on mammography. A negative report may reinforce clinical impression. Adenosis and dense breasts may obscure an underlying neoplasm. False positive reports average 6 to 10%. Patient will receive a letter notifying them of these results.
== END 2021-01-31 01:34 ==
PROVIDERS: PCP Nurse Practitioner; Visit Provider Nurse Practitioner Family
DX: Z12.31 Encounter for screening mammogram for malignant neoplasm of breast (principal); R92.8 Other abnormal and inconclusive findings on diagnostic imaging of breast
CPT/HCPCS: 77063; 77067

== ENCOUNTER 2021-02-02 03:28 | Outpatient (CLI) | payer MEDICARE, BC, SELFPAY ==
[2021-02-02 10:22] LABS: ESR 7 mm/hr (0-30)
[2021-02-02 12:04] LABS: TSH (W/Ref FT4) 1.17 uIU/mL (0.36-3.74)
[2021-02-02 16:26] LABS: Rheumatoid Factor <8.6 IU/mL (<12.0)
[2021-02-03 14:00] LABS: ANA Interpretation Negative (Negative)
== END 2021-02-02 03:29 | disposition home or self-care (01) ==
LOC: LBO 03:28
PROVIDERS: PCP Nurse Practitioner; Visit Provider Nurse Practitioner
DX: M25.50 Pain in unspecified joint (principal); E03.9 Hypothyroidism, unspecified; M35.3 Polymyalgia rheumatica
CPT/HCPCS: 36415; 85652; 84443; 86038; 86431

== ENCOUNTER 2021-02-16 01:29 | Outpatient (CLI) | payer MEDICARE, BC, SELFPAY ==
--- NOTE | 2021-02-16 14:55 | DI.MAMMO_ITS ---
Exam(s) MG MAMMO SCREEN CALL BACK UNI EXAM: MG MAMMO SCREEN CALL BACK UNI-LEFT CLINICAL HISTORY: F/U MAMMO, LT BREAST MICROCALCIFICATIONS. TECHNIQUE: Unilateral spot mammographic images were obtained with 2D technique. Performed both CC a nd MLO views peer COMPARISON: Prior mammograms were reviewed. This additional imaging was performed due to findings described on the recent screening mammogram of 01/31/2021. FINDINGS: Additional mammographic views performed todayusing 2D Mag techniquereveals these microcalcifications in left breast to be presently benign appearance. Recommend repeat left breast mammogram and Mag views in 6 months IMPRESSION: Presently benign-appearing left breast microcalcification group Appropriate follow-up is repeat left breast mammogram with Mag views in 6 months. The patient was informed of these findings and recommendations by myself today [facility] BI-RADS Category 3 - 6 month - Probably Benign Finding: Recommend follow-up mammography in 6 months Breast Density - Category B - Scattered areas of fibroglandular density Breast density Category C or D implies that the patient has dense breast tissue. Dense breast tissue can make it harder to find cancer on a mammogram. Dense breast tissue is also associated with an incr eased risk of breast cancer. This information about the result of the mammogram report was provided to the patient to raise their awareness. Use this report when you speak with the patient about their risks for breast cancer, which includes their family history. At that time, you may recommend additional screening tests (Ultrasoun d or MRI) as these tests may add significant information. A negative radiographic report should not delay biopsy if a dominant or clinically suspicious mass is present. Up to ten percent of cancers are not identified on mammography. A negative report may reinforce clinical impression. Adenosis and dense breasts may obscure an underlying neoplasm. False positive reports average 6 to 10%. Patient will receive a letter notifying them of these results.
== END 2021-02-16 01:49 ==
PROVIDERS: PCP Nurse Practitioner; Visit Provider Nurse Practitioner Family
DX: Z12.31 Encounter for screening mammogram for malignant neoplasm of breast (principal); R92.0 Mammographic microcalcification found on diagnostic imaging of breast; R92.8 Other abnormal and inconclusive findings on diagnostic imaging of breast
CPT/HCPCS: 77063; 77067

== ENCOUNTER 2021-07-11 18:41 | Outpatient (REF) | payer MEDICARE, BC, SELFPAY | END 2021-07-11 18:42 | disposition home or self-care (01) | LOC: LBN 18:41 | PROVIDERS: PCP Nurse Practitioner; Visit Provider Nurse Practitioner Family | DX: N30.90 Cystitis, unspecified without hematuria (principal) | CPT/HCPCS: 87077; 87086; 87186 ==

== ENCOUNTER 2021-09-26 03:40 | Outpatient (CLI) | payer MEDICARE, BC, SELFPAY ==
[2021-09-26 08:23] LABS: Hemoglobin A1C 5.5 % (<5.7)
[2021-09-26 09:19] LABS: Anion Gap 8.8 mmol/L (3-11); BUN 25 mg/dL (7-18); CO2 29.2 mmol/L (21.0-32.0); CREATININE 0.7 mg/dL (0.55-1.02); Calcium 8.8 mg/dL (8.5-10.1); Calculated LDL 70 mg/dL (<100); Chloride 103 mmol/L (98-107); Cholesterol 137 mg/dL (<200); Glucose 89 mg/dL (74-106); HDL Cholesterol 54 mg/dL (40-60); Potassium 4.2 mmol/L (3.5-5.1); Sodium 141 mmol/L (136-145); TSH (W/Ref FT4) 1.19 uIU/mL (0.36-3.74); Triglyceride 68 mg/dL (<150)
== END 2021-09-26 03:41 | disposition home or self-care (01) ==
LOC: LBO 03:41
PROVIDERS: PCP Nurse Practitioner; Visit Provider Nurse Practitioner
DX: E03.9 Hypothyroidism, unspecified (principal); I10 Essential (primary) hypertension; R73.03 Prediabetes
CPT/HCPCS: 36415; 80048; 80061; 83036; 84443

== ENCOUNTER 2021-10-07 00:20 | Outpatient (CLI) | payer MEDICARE, BC, SELFPAY ==
--- NOTE | 2021-10-07 07:45 | DI.DEXA_ITS ---
Exam(s) XR DEXA BONE DENSITY W/WO TYLER EXAM: XR DEXA BONE DENSITY W/WO TYLER CLINICAL HISTORY: osteopenia,screening for osteoporosis in postmenopausal woman,z78.0 TECHNIQUE: COMPARISON: Comparison examination is 12/17/2018. FINDINGS: Lateral Spine Image: Unremarkable. No compression deformities identified. Left hip: Total T-Score: -1.6. This compares to -1.2 on the prior examination. Total Z-Score: 0.4 T- and Z-scores: Findings are consistent with osteopenia. Lumbar Spine: Total T-Score: -2.3. This compares to -2.2 on the prior examination. Total Z-Score: 0.4 T- and Z-scores: Findings are consistent with osteopenia. IMPRESSION: Osteopenia in the left hip and lumbar spine.
== END 2021-10-07 00:40 ==
PROVIDERS: PCP Nurse Practitioner; Visit Provider Nurse Practitioner
DX: Z78.0 Asymptomatic menopausal state (principal); Z13.820 Encounter for screening for osteoporosis; M85.89 Other specified disorders of bone density and structure, multiple sites
CPT/HCPCS: 77080

== ENCOUNTER 2021-10-24 03:11 | Outpatient (CLI) | payer MEDICARE, BC, SELFPAY ==
--- NOTE | 2021-10-24 07:30 | DI.MAMMO_ITS ---
Exam(s) MAMMO DIAGNOSTIC UNI EXAM: MAMMO DIAGNOSTIC UNI CLINICAL HISTORY: 6 mo f/u left breast mammogram,r92.8 TECHNIQUE: Mammograms were interpreted according to the usual protocol including computer analysis w [employer] CAD system, tomosynthesis and C-view imaging. COMPARISON: 2011 through 2020 FINDINGS: The breasts are composed of scattered fibroglandular densities, Breast Density category B. No suspicious masses or suspicious microcalcifications are seen. Coarse, benign-appearing calcificat ions are again noted in the lateral left breast. No suspicious microcalcifications. No skin thickening or abnormal axillary lymph nodes are seen. There has been no significant change from prior exams. IMPRESSION: BI-RADS Cat 2 - Benign Findings Bilateral screening mammography is due in 6 months. Breast Density - Category B, scattered fibroglandular densities. A negative radiographic report should not delay biopsy if a dominant or clinically suspicious mass is present. Up to ten percent of cancers are not identified on mammography. A negative report may reinforce clinical impression. Adenosis and dense breasts may obscure an underlying neoplasm. False positive reports average 6 to 10%. Patient will receive a letter notifying them of these results.
== END 2021-10-24 03:31 ==
PROVIDERS: PCP Nurse Practitioner; Visit Provider Nurse Practitioner Family
DX: R92.8 Other abnormal and inconclusive findings on diagnostic imaging of breast (principal); N60.82 Other benign mammary dysplasias of left breast
CPT/HCPCS: 77061; 77065; G0279

== ENCOUNTER 2022-02-06 15:46 | Outpatient (REF) | payer MEDICARE, BC, SELFPAY ==
[2022-02-06 22:16] LABS: Bilirubin Negative (Negative); Blood Moderate (Negative); Clarity Cloudy (Clear); Glucose Negative (Negative); Ketones Negative (Negative); Leukocyte Esterase Small (Negative); Nitrite Negative (Negative); Specific Gravity 1.025 (1.005-1.025); Urobilinogen 0.2 EU/dL (Up TO 0.2); pH 6.5 (5-8)
[2022-02-06 22:29] LABS: WBC >50 HPF (0-5)
[2022-02-06 22:30] LABS: C & S Indicated? Yes
== END 2022-02-06 15:47 | disposition home or self-care (01) ==
LOC: LBN 15:46
PROVIDERS: PCP Nurse Practitioner; Visit Provider Physician Assistant
DX: R39.89 Other symptoms and signs involving the genitourinary system (principal)
CPT/HCPCS: 87077; 81003; 81015; 87086; 87186

== ENCOUNTER 2022-02-21 12:56 | Outpatient (REF) | payer MEDICARE, BC, SELFPAY | END 2022-02-21 12:57 | disposition home or self-care (01) | LOC: LBN 12:56 | PROVIDERS: PCP Nurse Practitioner; Visit Provider Physician Assistant Medical | DX: N39.0 Urinary tract infection, site not specified (principal) | CPT/HCPCS: 87077; 87086; 87186 ==

== ENCOUNTER → 2022-04-27 01:59 | Outpatient (CLI) | payer MEDICARE, BC, SELFPAY ==
--- NOTE | 2022-04-27 12:45 | DI.MAMMO_ITS ---
Exam(s) MAMMO SCREENING EXAM: MAMMO SCREENING CLINICAL HISTORY: screening TECHNIQUE: Bilateral full field digital CC and MLO mammographic images were obtained with 3D tomosyn thesis and utilizing computer aided detection (CAD). COMPARISON: Available for comparison. FINDINGS: Masses/Architectural Distortion: There is a focal asymmetric density in the upper left breast on the MLO view. This is more prominent compared to the prior examinations. Microcalcifications: No suspicious pleomorphic-type are seen. Stable bilateral calcifications are pre sent. Skin Thickening/Nipple Retraction: None. IMPRESSION: 1. Focal asymmetric density in the upper left breast on the MLO view. 2. This area should be further evaluated with a spot compression view. Ultrasound may be indicated a t that time BI-RADS Category 0 - Assessment Incomplete: Need additional imaging evaluation Breast Density - Category B - Scattered areas of fibroglandular density Breast density category C or D implies that the patient has dense breast tissue. Dense breast tissue is very common and is not abnormal but dense breast tissue can make it harder to find cancer on a ma mmogram. Also, dense breast tissue may increase their breast cancer risk. This information about the result of the mammogram report was provided to the patient to raise their awareness. Use this report when you speak with the patient about their risks for breast cancer, which includes their family hist ory. At that time, you may recommend for more screening tests (Ultrasound or MRI) as they might be us eful based on their risk. A negative radiographic report should not delay biopsy if a dominant or clinically suspicious mass is present. Up to ten percent of cancers are not identified on mammography. A negative report may reinforce clinical impression. Adenosis and dense breasts may obscure an underlying neoplasm. False positive reports average 6 to 10%. Patient will receive a letter notifying them of these results.
== END ==
PROVIDERS: PCP Nurse Practitioner; Visit Provider Nurse Practitioner Family
DX: Z12.31 Encounter for screening mammogram for malignant neoplasm of breast (principal); R92.8 Other abnormal and inconclusive findings on diagnostic imaging of breast
CPT/HCPCS: 77063; 77067

== ENCOUNTER → 2022-05-04 01:38 | Outpatient (CLI) | payer MEDICARE, BC, SELFPAY ==
--- NOTE | 2022-05-04 | DI.US_ITS ---
Exam(s) MG MAMMO SCREEN CALL BACK UNI US BREAST LT LIMITED EXAM: MG MAMMO SCREEN CALL BACK UNI and U/S breast LT limited CLINICAL HISTORY: ASYMMETRIC DENSITY LEFT BREAST. TECHNIQUE: Craniocaudal and mediolateral oblique Full Field Digital Mammography views of the left br east with Computer Aided Diagnosis followed by Tomosynthesis and left breast ultrasound. COMPARISON: Comparison is made with prior examinations. FINDINGS: Mammography/Tomosynthesis: Masses/Architectural Distortion: None seen. Microcalcifictions: No suspicious pleomorphic-type are seen. Skin Thickening/Nipple Retraction: None. Limited left breast US: Echotexture: Normal appearance of the glandular tissue. Shadowing: No suspicious foci. Cyst: None. Solid lesions: None seen. Ductal dilation: None. IMPRESSION: 1. No evidence of malignancy is noted. 2. Unless there is more urgent need, follow-up screening mammography is recommended, as per [place] [employer] guidelines. 3. The findings were discussed with the patient on the date of the examination. BI-RADS Category 1 - Negative Breast Density - Category B - Scattered areas of fibroglandular density Breast density Category C or D implies that the patient has dense breast tissue. Dense breast tissue can make it harder to find cancer on a mammogram. Dense breast tissue is also associated with an incr eased risk of breast cancer. This information about the result of the mammogram report was provided to the patient to raise their awareness. Use this report when you speak with the patient about their risks for breast cancer, which includes their family history. At that time, you may recommend additional screening tests (Ultrasoun d or MRI) as these tests may add significant information. A negative radiographic report should not delay biopsy if a dominant or clinically suspicious mass is present. Up to ten percent of cancers are not identified on mammography. A negative report may reinforce clinical impression. Adenosis and dense breasts may obscure an underlying neoplasm. False positive reports average 6 to 10%. Patient will receive a letter notifying them of these results.
== END ==
PROVIDERS: PCP Nurse Practitioner; Visit Provider Nurse Practitioner Family
DX: R92.8 Other abnormal and inconclusive findings on diagnostic imaging of breast (principal); Z12.31 Encounter for screening mammogram for malignant neoplasm of breast
CPT/HCPCS: 76642; 77063; 77067

== ENCOUNTER 2022-07-17 18:06 | Outpatient (REF) | payer MEDICARE, BC, SELFPAY ==
[2022-07-17 21:45] LABS: Bilirubin Negative (Negative); Blood Small (Negative); Clarity Cloudy (Clear); Glucose Negative (Negative); Ketones Negative (Negative); Leukocyte Esterase Large (Negative); Nitrite Negative (Negative); Specific Gravity 1.015 (1.005-1.025); Urobilinogen 0.2 EU/dL (Up TO 0.2); pH 6.5 (5-8)
[2022-07-17 21:57] LABS: Bacteria Moderate HPF (Negative); C & S Indicated? Yes; Casts Negative LPF (Negative); Crystals Negative HPF (Negative); Epithelial Cells Few HPF (Negative); Mucus Negative (Negative); WBC 20-50 HPF (0-5)
== END 2022-07-17 18:07 | disposition home or self-care (01) ==
LOC: LBN 18:06
PROVIDERS: PCP Nurse Practitioner Family; Visit Provider Nurse Practitioner Family
DX: R39.9 Unspecified symptoms and signs involving the genitourinary system (principal)
CPT/HCPCS: 87077; 81003; 81015; 87086; 87186

== ENCOUNTER 2022-09-12 17:48 | Outpatient (REF) | payer MEDICARE, BC, SELFPAY ==
[2022-09-12 14:06] LABS: Bilirubin Negative (Negative); Blood Small (Negative); Clarity Clear (Clear); Glucose Negative (Negative); Ketones Negative (Negative); Leukocyte Esterase Negative (Negative); Nitrite Negative (Negative); Urobilinogen 0.2 EU/dL (Up TO 0.2)
[2022-09-12 14:53] LABS: Bacteria Negative HPF (Negative); Crystals Negative HPF (Negative); Epithelial Cells Rare HPF (Negative); Mucus Trace (Negative); WBC Negative HPF (0-5)
[2022-09-12 14:54] LABS: C & S Indicated? No; Casts Negative LPF (Negative)
== END 2022-09-12 17:49 | disposition home or self-care (01) ==
LOC: NCHCN 17:48
PROVIDERS: PCP Nurse Practitioner Family; Visit Provider Nurse Practitioner Family
DX: N39.0 Urinary tract infection, site not specified (principal)
CPT/HCPCS: 81003; 81015

== ENCOUNTER 2022-09-27 04:05 | Outpatient (CLI) | payer MEDICARE, BC, SELFPAY ==
[2022-09-27 08:41] LABS: Hemoglobin A1C 5.5 % (<5.7)
[2022-09-27 08:54] LABS: ALT 24 U/L (14-59); AST 27 U/L (15-37); Albumin 3.7 g/dL (3.4-5.0); Alkaline Phosphatase 89 U/L (46-116); Anion Gap 3.6 mmol/L (3-11); BUN 24 mg/dL (7-18); Bilirubin, Total 0.6 mg/dL (0.2-1.0); CO2 33.4 mmol/L (21.0-32.0); Calcium 9.2 mg/dL (8.5-10.1); Calculated LDL 71 mg/dL (<100); Chloride 100 mmol/L (98-107); Cholesterol 158 mg/dL (<200); Estimated GFR 56.95 (mL/min/1.73m2); Glucose 92 mg/dL (74-106); HDL Cholesterol 72 mg/dL (40-60); Sodium 137 mmol/L (136-145); Total Protein 6.9 g/dL (6.4-8.2); Triglyceride 76 mg/dL (<150)
== END 2022-09-27 04:06 | disposition home or self-care (01) ==
LOC: LBO 04:05
PROVIDERS: PCP Nurse Practitioner Family; Visit Provider Nurse Practitioner Family
DX: R73.03 Prediabetes (principal); E78.2 Mixed hyperlipidemia
CPT/HCPCS: 36415; 80053; 80061; 83036

== ENCOUNTER 2023-03-16 01:27 | Outpatient (CLI) | payer MEDICARE, BC, SELFPAY ==
[2023-03-16 12:43] LABS: TSH (W/Ref FT4) 2.17 uIU/mL (0.36-3.74)
== END 2023-03-16 01:28 | disposition home or self-care (01) ==
LOC: LOS 01:28
PROVIDERS: PCP Nurse Practitioner Family; Visit Provider Nurse Practitioner Family
DX: E03.9 Hypothyroidism, unspecified (principal)
CPT/HCPCS: 36415; 84443

== ENCOUNTER → 2023-09-10 02:07 | Outpatient (CLI) | payer MEDICARE, BC, SELFPAY ==
--- NOTE | 2023-09-10 12:15 | DI.MAMMO_ITS ---
Exam(s) MAMMO SCREENING EXAM: MAMMO SCREENING CLINICAL HISTORY: screening TECHNIQUE: Mammograms were interpreted according to the usual protocol including computer analysis w [place] CAD system, tomosynthesis and C-view imaging. COMPARISON: 2014 through 2021 FINDINGS: The breasts are composed of scattered fibroglandular densities, Breast Density category B. No suspicious masses or suspicious microcalcifications are seen. Stable bilateral benign calcificati ons. No skin thickening or abnormal axillary lymph nodes are seen. There has been no significant change from prior exams. IMPRESSION: BI-RADS Category 2 - Negative Mammogram with benign findings. Yearly screening mammography is recomm ended. Breast Density - Category B, scattered fibroglandular densities. A negative radiographic report should not delay biopsy if a dominant or clinically suspicious mass is present. Up to ten percent of cancers are not identified on mammography. A negative report may reinforce clinical impression. Adenosis and dense breasts may obscure an underlying neoplasm. False positive reports average 6 to 10%. Patient will receive a letter notifying them of these results.
== END ==
PROVIDERS: PCP Nurse Practitioner Family; Visit Provider Obstetrics & Gynecology Gynecology
DX: Z12.31 Encounter for screening mammogram for malignant neoplasm of breast (principal)
CPT/HCPCS: 77063; 77067

== ENCOUNTER 2023-10-04 04:24 | Outpatient (CLI) | payer MEDICARE, BC, SELFPAY ==
[2023-10-04 08:13] LABS: HCT 44.7 % (36.0-46.0); HGB 15.1 g/dL (11.2-15.7); MCH 31.7 pg (27.0-33.0); MCHC 33.8 % (32.0-36.0); MCV 94 fL (80-95); MPV 10.5 fL (8.0-11.0); Platelet Count 372 10^3/uL (130-400); RBC 4.76 10^6/uL (3.93-5.22); RDW 14.3 % (11.7-14.6); WBC 9.71 10^3/uL (4.4-10.8)
[2023-10-04 08:23] LABS: Hemoglobin A1C 5.7 % (<5.7)
[2023-10-04 08:38] LABS: ALT 23 U/L (14-59); AST 22 U/L (15-37); Albumin 3.4 g/dL (3.4-5.0); Alkaline Phosphatase 90 U/L (46-116); Anion Gap 6.4 mmol/L (3-11); BUN 19 mg/dL (7-18); Bilirubin, Total 0.4 mg/dL (0.2-1.0); CO2 30.6 mmol/L (21.0-32.0); Calcium 9.5 mg/dL (8.5-10.1); Calculated LDL 67 mg/dL (<100); Chloride 103 mmol/L (98-107); Cholesterol 162 mg/dL (<200); Glucose 100 mg/dL (74-106); HDL Cholesterol 86 mg/dL (40-60); Potassium 4.2 mmol/L (3.5-5.1); Sodium 140 mmol/L (136-145); TSH (W/Ref FT4) 3.23 uIU/mL (0.36-3.74); Total Protein 6.9 g/dL (6.4-8.2); Triglyceride 49 mg/dL (<150)
== END 2023-10-04 04:25 | disposition home or self-care (01) ==
LOC: LBO 04:24
PROVIDERS: PCP Nurse Practitioner Family; Visit Provider Nurse Practitioner Family
DX: E03.9 Hypothyroidism, unspecified (principal); R53.83 Other fatigue; R73.03 Prediabetes; E78.2 Mixed hyperlipidemia
CPT/HCPCS: 36415; 80053; 80061; 85027; 83036; 84443

== ENCOUNTER 2024-10-06 10:47 | Outpatient (CLI) | payer MEDICARE, BC, SELFPAY ==
[2024-10-06 12:40] LABS: ALT 22 U/L (14-59); AST 25 U/L (15-37); Alkaline Phosphatase 95 U/L (46-116); Anion Gap 8.5 mmol/L (3-11); BUN 19 mg/dL (7-18); Bilirubin, Total 0.51 mg/dL (0.2-1.0); CO2 30.5 mmol/L (21.0-32.0); Calcium 10.1 mg/dL (8.5-10.1); Calculated LDL 73 mg/dL (<100); Chloride 99 mmol/L (98-107); Cholesterol 161 mg/dL (<200); Estimated GFR 56.25 (mL/min/1.73m2); Glucose 100 mg/dL (74-106); HDL Cholesterol 69 mg/dL (40-60); Sodium 138 mmol/L (136-145); TSH (W/Ref FT4) 0.55 uIU/mL (0.36-3.74); Total Protein 7.4 g/dL (6.4-8.2); Triglyceride 99 mg/dL (<150)
== END 2024-10-06 10:48 | disposition home or self-care (01) ==
LOC: LOS 10:47
PROVIDERS: PCP Nurse Practitioner Family; Referring Provider Nurse Practitioner Family; Visit Provider Nurse Practitioner Family
DX: E78.2 Mixed hyperlipidemia (principal); E03.9 Hypothyroidism, unspecified
CPT/HCPCS: 36415; 80053; 80061; 84443

== ENCOUNTER 2024-10-28 13:49 | Outpatient (REF) | payer MEDICARE, BC, SELFPAY ==
[2024-10-28 21:32] LABS: HCT 43.6 % (36.0-46.0); HGB 14.8 g/dL (11.2-15.7); MCH 31.7 pg (27.0-33.0); MCHC 33.9 % (32.0-36.0); MCV 93 fL (80-95); MPV 10.8 fL (8.0-11.0); Platelet Count 374 10^3/uL (130-400); RBC 4.67 10^6/uL (3.93-5.22); RDW 13.7 % (11.7-14.6); WBC 9.79 10^3/uL (4.4-10.8)
[2024-10-28 22:07] LABS: Vitamin B12 622 pg/mL (193-986)
[2024-10-28 22:08] LABS: Folate > 20.0 ng/mL (8.6-20.0)
== END 2024-10-28 13:50 | disposition home or self-care (01) ==
LOC: NCHCN 13:49
PROVIDERS: PCP Nurse Practitioner Family; Visit Provider Nurse Practitioner Family
DX: D75.89 Other specified diseases of blood and blood-forming organs (principal)
CPT/HCPCS: 85027; 82607; 82746

== ENCOUNTER 2024-12-04 00:29 | Outpatient (CLI) | payer MEDICARE, BC, SELFPAY ==
--- NOTE | 2024-12-04 07:15 | DI.DEXA_ITS ---
Exam(s) XR DEXA BONE DENSITY W/WO TYLER EXAM: XR DEXA BONE DENSITY W/WO TYLER CLINICAL HISTORY: screening for osteoporosis in postmenopausal woman,is on prednisone,z78.0 TECHNIQUE: Routine DEXA evaluation of the lumbar spine, hip, or forearm. COMPARISON: CR XR DEXA BONE DENSITY W/WO TYLER from 10/07/2021 FINDINGS: Performed on a Hologic unit. Lateral image: No compression fracture evident. Lumbar Spine total T-score: -1.7. Prior reading in September 2021 was -2.3 Hip total T-score:-1.6. Prior reading in September 2021 was also -1.6 Independent reading at the level of the femoral neck yields T-score of -1.8. The reading in 2021 was -2.2. Forearm total T-score: -3.4. Prior reading in September 2021 was also -3.4. IMPRESSION: Bone mineral density measures in the osteopenia range for the lumbar spine and hip and measures in th e osteoporosis range at the level the wrist.. Fracture risk is moderate-high Note: Any spine fracture indicates 5x risk for subsequent spine fracture and 2x risk for subsequent h ip fracture. World Health Organization criteria for BMD interpretation classify patients: Normal...... T- Score at or above -1.0 Osteopenic... T- Score between -1.0 and -2.5 Osteoporosis... T-Score at or below -2.5
== END 2024-12-04 00:49 ==
LOC: DI 00:29
PROVIDERS: PCP Nurse Practitioner Family; Visit Provider Nurse Practitioner Family
DX: Z78.0 Asymptomatic menopausal state (principal); D75.89 Other specified diseases of blood and blood-forming organs; Z13.820 Encounter for screening for osteoporosis; M85.89 Other specified disorders of bone density and structure, multiple sites
CPT/HCPCS: 77080